=== PATIENT | male | born 1935 | race Caucasian/White ===

== ENCOUNTER → 2017-07-27 10:15 | Outpatient (CLI) | payer MEDICARE, OTHER, SELFPAY ==
[2017-07-27 12:44] LABS: AST(SGOT) 16 U/L (15-37); Alanine Aminotransfer ALT/SGPT 22 U/L (16-61); Albumin, Serum 3.6 g/dL (3.2-5.0); Alkaline Phosphatase 67 U/L (45-117); Bilirubin, Direct 0.21 mg/dL (0.00-0.30); Cholesterol 87 mg/dL (200); Globulin 3.6 g/dL (2.2-4.2); High Density Lipoprotein 62 mg/dL; Protein, Total 7.2 g/dL (6.4-8.2); Triglycerides 37 mg/dL; Very Low Density Lipoprotein 7 mg/dL (5-40)
== END ==
PROVIDERS: Family Provider Family Medicine; PCP Family Medicine; Visit Provider Physician Assistant Medical
DX: E78.5 Hyperlipidemia, unspecified (principal); Z79.899 Other long term (current) drug therapy
CPT/HCPCS: 36415; 80061; 80076

== ENCOUNTER → 2017-09-21 11:40 | Outpatient (CLI) | payer MEDICARE, OTHER, SELFPAY ==
[2017-09-21 14:54] LABS: Absolute Lymphocyte Count 0.92 X10^3/ul (0.83-4.51); Absolute Neutrophil Count 3.4 X10^3/uL (2.0-7.7); Basophil# 0.03 X10^3/uL; Basophil% 0.6 % (0-1); Eosinophil# 0.18 X10^3/uL; Eosinophils% 3.6 % (0-5); Hematocrit 42.8 % (40-54); Hemoglobin 13.7 g/dl (13.0-16.5); Lymphocyte # 0.92 X10^3/ul (4.0); Lymphocyte % 18.4 % (19-41); Mean Corpuscular Hgb 31.3 pg (27.0-32.0); Mean Corpuscular Volume 97.7 fL (80-94); Mean Platelet Vol. 11.1 fl (6.2-12.0); Monocyte# 0.45 X10^3/uL; Neutrophil # 3.43 X10^3/uL (2.7-7.7); Neutrophil % 68.4 % (47-70); Platelet Count 199 K/mm3 (150-450); RBC Distribution Width CV 12.9 % (11.6-14.6); RBC Distribution Width SD 46.5 fl (35.1-43.9); Red Blood Count 4.38 M/mm3 (4.6-6.2)
[2017-09-21 14:55] LABS: POSITIVE COUNT NO; POSITIVE DIFFERENTIAL NO; POSITIVE MORPHOLOGY NO
[2017-09-21 15:26] LABS: Vitamin D,25 Hydroxy 41.4 ng/mL (29.95-100.01)
[2017-09-21 15:27] LABS: CRP < 2.90 mg/L (0.0-3.0); PTHIN 49.7 pg/mL (18.4-80.1); Rheumatoid Factor < 10.0 IU/mL (<15); Uric Acid 5.1 mg/dL (3.5-7.2)
[2017-09-23 11:25] LABS: ANTINUCLEAR ANTIBODIES DIRECT Negative (Negative)
[2017-09-24 10:59] LABS: CCP IgG Antibodies 9 units (0-19)
== END ==
PROVIDERS: Family Provider Family Medicine; PCP Family Medicine; Visit Provider Family Medicine
DX: M06.4 Inflammatory polyarthropathy (principal); E55.9 Vitamin D deficiency, unspecified
CPT/HCPCS: 36415; 82306; 83970; 84443; 84550; 85025; 86038; 86140; 86200; 86431

== ENCOUNTER → 2017-11-20 11:35 | Outpatient (CLI) | payer MEDICARE, OTHER, SELFPAY ==
[2017-11-20 14:36] LABS: Hematocrit 44.5 % (40-54); Hemoglobin 14.3 g/dl (13.0-16.5); Mean Corp Hgb Conc 32.1 g/gl (32-36); Mean Corpuscular Hgb 31.6 pg (27.0-32.0); Mean Corpuscular Volume 98.5 fL (80-94); Mean Platelet Vol. 11.1 fl (6.2-12.0); Platelet Count 217 K/mm3 (150-450); RBC Distribution Width CV 13.2 % (11.6-14.6); RBC Distribution Width SD 46.9 fl (35.1-43.9); Red Blood Count 4.52 M/mm3 (4.6-6.2); Scan Indicated on CBC? Y/N NO; White Blood Count 6.1 K/mm3 (4.4-11.0)
[2017-11-20 14:37] LABS: ALB/GLOB Ratio 0.9 RATIO (0.9-2.4); AST(SGOT) 22 U/L (15-37); Alanine Aminotransfer ALT/SGPT 30 U/L (16-61); Albumin, Serum 3.6 g/dL (3.2-5.0); Alkaline Phosphatase 61 U/L (45-117); Anion Gap 8 (5-15); BUN 21 mg/dL (7-18); BUN/Creat Ratio 19.8 RATIO (10-20); Calcium,Total 9.4 mg/dL (8.5-10.1); Chloride 106 mmol/L (98-107); Creatinine, Serum 1.06 mg/dL (0.70-1.30); EST Glomerular Filtration Rate 71 mL/min (>60); Est Glom Filt Rate - Afr Amer 86 mL/min (>60); Globulin 3.8 g/dL (2.2-4.2); Glucose 84 mg/dL (74-106); PSA,Total- Diagnostic 0.38 ng/mL (0.0-4.0); Potassium 4.8 mmol/L (3.5-5.1); Protein, Total 7.4 g/dL (6.4-8.2); Sodium Level 142 mmol/L (136-145); Thyroid Stim Hormone (TSH) 2.22 uIU/mL (0.358-3.74)
[2017-11-20 15:17] LABS: Vitamin D,25 Hydroxy 30.3 ng/mL (29.95-100.01)
== END ==
PROVIDERS: Family Provider Family Medicine; PCP Family Medicine; Visit Provider Family Medicine
DX: Z00.00 Encounter for general adult medical examination without abnormal findings (principal); F32.89 Other specified depressive episodes; E55.9 Vitamin D deficiency, unspecified
CPT/HCPCS: 36415; 80053; 82306; 84153; 84403; 84443; 85027

== ENCOUNTER → 2018-01-15 10:58 | Outpatient (CLI) | payer MEDICARE, OTHER, SELFPAY ==
[2018-01-15 12:18] LABS: Absolute Lymphocyte Count 1.05 X10^3/ul (0.83-4.51); Basophil# 0.02 X10^3/uL; Basophil% 0.4 % (0-1); Eosinophils% 3.5 % (0-5); Hematocrit 42.6 % (40-54); Hemoglobin 13.8 g/dl (13.0-16.5); Lymphocyte # 1.05 X10^3/ul (4.0); Lymphocyte % 18.4 % (19-41); Mean Corp Hgb Conc 32.4 g/gl (32-36); Mean Corpuscular Hgb 32.1 pg (27.0-32.0); Mean Corpuscular Volume 99.1 fL (80-94); Mean Platelet Vol. 11.1 fl (6.2-12.0); Monocyte# 0.42 X10^3/uL; Monocyte% 7.4 % (0-10); Neutrophil # 4.01 X10^3/uL (2.7-7.7); Neutrophil % 70.1 % (47-70); Platelet Count 204 K/mm3 (150-450); RBC Distribution Width SD 46.4 fl (35.1-43.9); White Blood Count 5.7 K/mm3 (4.4-11.0)
[2018-01-15 12:28] LABS: POSITIVE COUNT NO; POSITIVE DIFFERENTIAL NO; POSITIVE MORPHOLOGY NO
[2018-01-15 12:40] LABS: Vitamin B12 496 pg/mL (211-911)
[2018-01-15 13:15] LABS: Ferritin 98 ng/mL (26-388)
== END ==
PROVIDERS: Family Provider Family Medicine; PCP Family Medicine; Referring Provider Family Medicine; Visit Provider Family Medicine
DX: D64.9 Anemia, unspecified (principal)
CPT/HCPCS: 36415; 82607; 82728; 82746; 85025

== ENCOUNTER → 2018-08-04 | Outpatient (CLI) | payer MEDICARE, OTHER, SELFPAY ==
[2018-08-04 16:34] LABS: Absolute Lymphocyte Count 1.07 X10^3/ul (0.83-4.51); Absolute Neutrophil Count 3.7 X10^3/uL (2.0-7.7); Basophil# 0.02 X10^3/uL; Basophil% 0.4 % (0-1); Eosinophil# 0.25 X10^3/uL; Eosinophils% 4.4 % (0-5); Hematocrit 42.5 % (40-54); Hemoglobin 13.9 g/dl (13.0-16.5); Lymphocyte # 1.07 X10^3/ul (4.0); Lymphocyte % 18.9 % (19-41); Mean Corp Hgb Conc 32.7 g/gl (32-36); Mean Corpuscular Hgb 31.5 pg (27.0-32.0); Mean Corpuscular Volume 96.4 fL (80-94); Mean Platelet Vol. 10.7 fl (6.2-12.0); Monocyte% 10.6 % (0-10); Neutrophil # 3.72 X10^3/uL (2.7-7.7); Neutrophil % 65.5 % (47-70); POSITIVE COUNT NO; POSITIVE DIFFERENTIAL NO; POSITIVE MORPHOLOGY NO; Platelet Count 222 K/mm3 (150-450); RBC Distribution Width CV 13.2 % (11.6-14.6); RBC Distribution Width SD 45.3 fl (35.1-43.9); Red Blood Count 4.41 M/mm3 (4.6-6.2); White Blood Count 5.7 K/mm3 (4.4-11.0)
[2018-08-04 16:42] LABS: Erythrocyte Sedimentation Rate 6 mm/hr (0-20)
[2018-08-04 16:45] LABS: ALB/GLOB Ratio 1.1 RATIO (0.9-2.4); AST(SGOT) 16 U/L (15-37); Alanine Aminotransfer ALT/SGPT 22 U/L (16-61); Albumin, Serum 3.7 g/dL (3.2-5.0); Alkaline Phosphatase 71 U/L (45-117); Anion Gap 3 (5-15); BUN 21 mg/dL (7-18); BUN/Creat Ratio 21.3 RATIO (10-20); Calcium,Total 9.2 mg/dL (8.5-10.1); Chloride 108 mmol/L (98-107); Creatinine, Serum 0.98 mg/dL (0.70-1.30); EST Glomerular Filtration Rate 77 mL/min (>60); Est Glom Filt Rate - Afr Amer 93 mL/min (>60); Globulin 3.3 g/dL (2.2-4.2); Glucose 95 mg/dL (74-106); Potassium 5.1 mmol/L (3.5-5.1); Sodium Level 137 mmol/L (136-145); Thyroid Stim Hormone (TSH) 1.82 uIU/mL (0.358-3.74)
[2018-08-04 22:06] LABS: Vitamin B12 980 pg/mL (211-911)
== END | disposition home or self-care (01) ==
LOC: MFPLAB 14:32
PROVIDERS: Family Provider Family Medicine; PCP Family Medicine; Referring Provider Family Medicine; Visit Provider Family Medicine
DX: R53.83 Other fatigue (principal)
CPT/HCPCS: 36415; 80053; 82607; 82746; 84443; 85025; 85652

== ENCOUNTER → 2018-08-16 | Outpatient (CLI) | payer MEDICARE, OTHER, SELFPAY ==
--- NOTE | 2018-08-16 17:08 | CT_ITS ---
STUDY: CT BRAIN WITHOUT CONTRAST REASON FOR EXAM: Male, 83 years old. Unsteady gait RADIATION DOSAGE (If Supplied By Facility): DLP = ( 812.98 ) mGycm TECHNIQUE: Transaxial CT imaging of the brain was performed without administration of intravenous contrast material. Individualized dose optimization techniques were used for this CT. COMPARISON: None. FINDINGS: There is no acute bleed or infarct. Chronic ischemic and atrophic changes are present. The ventricles are normal in configuration. There is no hydrocephalus. The visualized paranasal sinuses are clear. The mastoid air cells are well aerated. There is no skull fracture. CT/Brain/Head without Contrast IMPRESSION: No acute intracranial abnormality. Chronic ischemic and atrophic changes. Electronically Signed: Santiago Koch, at 21:54 EDT Tel , Service support ,
== END | disposition home or self-care (01) ==
LOC: CT 17:05
PROVIDERS: Family Provider Family Medicine; PCP Family Medicine; Referring Provider Family Medicine; Visit Provider Family Medicine
DX: R26.81 Unsteadiness on feet (principal)
CPT/HCPCS: 70450

== ENCOUNTER 2018-09-09 12:31 | Outpatient (RCR) | payer MEDICARE, OTHER, SELFPAY ==
--- NOTE | 2018-09-09 13:26 | HP.PTEVAL_ITS ---
Patient's Visit Information SAVI OROZCO is a 83 year old M referred to Physical Therapy by Cooper Tucker MD with a diagnosis of Gait instability. Date of Evaluation: 09/09/18 Physical Therapist: Cooper Rosario, DPT, OCS, CSCS - Visit Plan Plan: Results reviewed with patient and sent to doctor. Educated on appropriate exercises for balance deficits per results and written down for patient to take to his current therapist. reviewed precautions. One time visit per doctor order. Pt wants to continue therapy closer to home and will show results to his therapist(exercises). - Subjective Findings: Dr. tucker wants balance test as he needs some physical therapy. Meds don't seem to work. Problem is he walks very slowly. stepping off a curb is tentative and hesitant. Feel one time this winter walking in [facility] and is now using a cane for long walks. (30+ minutes). has broken leg and needs to stay close to home. Feels hesitant to take longer walk due to fatigue and is tired. Not good on feet anymore adn trying to figure out why. No spinning. No neuropathy. No nerve problems. Sleep is good btu wakes up early. 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 Spends day going to office and taking care of .Does floor exercises at home for stretching. - Objective Ankle AROM and strength at ankles and hips and knees. Gastroc and HS mildly tight. Sensation LE WNL to gross light touch. reflexes 2/3 at patella and achilles. Walks and trasnfers I today but steps are short and slightly wide MARÍA ELENA, hesitant to shift weight. SOT: mild vestibular deficits. MCT: normal. LOS: R and L wieght shifts adn forward excursion deficits. Pt will have therapy at another clinic closer to home but came here just for balance test and have results sent to Dr. Tucker. - Anticipated Interventions Thank you for the opportunity to evaluate your patient. For Medicare and Medicare HMO plans, please review the plan of care and approve it. It will need to be FAXED BACK to us at [phone] for Medicare purposes. For Medicare only, by signing this I certify the plan of care. Please let me know if there are questions or concerns regarding this plan of care. Physician Zoya rodriguez: Date:
--- NOTE | 2018-09-09 13:27 | HP.PTCOM ---
PT Communication Note 09/09/[address] Cooper Hawk MD , Thank you for the referral of Yrn to [facility] for balance testing. The results are enclosed for your review. Please let me know fi there are questions. I have reviewed appropriate exercises based on these results with the patient to take to his current therapist for instruction. Sincerely, CHRIS GambleT, OCS, CSCS Contact Information
== END 2018-09-09 15:49 | disposition home or self-care (01) ==
LOC: PT 12:31
PROVIDERS: Family Provider Family Medicine; PCP Family Medicine; Referring Provider Family Medicine; Visit Provider Family Medicine
DX: R26.89 Other abnormalities of gait and mobility (principal)
CPT/HCPCS: 97162

== ENCOUNTER → 2018-10-05 | Outpatient (CLI) | payer MEDICARE, OTHER, SELFPAY ==
[2018-10-04 14:40] VITALS: BMI 26.5
[2018-10-05 11:58] LABS: AST(SGOT) 18 U/L (15-37); Alanine Aminotransfer ALT/SGPT 21 U/L (16-61); Albumin, Serum 3.6 g/dL (3.2-5.0); Alkaline Phosphatase 71 U/L (45-117); Bilirubin, Direct 0.19 mg/dL (0.00-0.30); Cholesterol 103 mg/dL (200); Globulin 3.6 g/dL (2.2-4.2); High Density Lipoprotein 73 mg/dL; Protein, Total 7.2 g/dL (6.4-8.2); Triglycerides 44 mg/dL; Very Low Density Lipoprotein 9 mg/dL (5-40)
== END | disposition home or self-care (01) ==
PROVIDERS: Family Provider Family Medicine; PCP Family Medicine; Referring Provider Internal Medicine Cardiovascular Disease; Visit Provider Internal Medicine Cardiovascular Disease
DX: I25.10 Atherosclerotic heart disease of native coronary artery without angina pectoris (principal)
CPT/HCPCS: 36415; 80061; 80076

== ENCOUNTER → 2019-03-28 13:15 | Outpatient (CLI) | payer MEDICARE, OTHER, SELFPAY ==
[2018-10-04 14:40] VITALS: BMI 26.5
--- NOTE | 2019-03-28 13:38 | MRI_ITS ---
STUDY: MRI BRAIN WITH AND WITHOUT CONTRAST REASON FOR EXAM: Male, 84 years old. ATAXIA, balance/walking issues TECHNIQUE: Standardized multiplanar fat and water weighted pulse sequences were obtained. Dotarem IV 16ml was administered for the contrast portion of the examination. COMPARISON: FINDINGS: There is moderate confluent periventricular and scattered subcortical white matter gliosis. There is no mass effect, midline shift, extra parenchymal fluid collections or herniation. There is mild global brain atrophy. There is moderate ventriculomegaly affecting all 4 ventricles. There are no intracranial hemorrhagic findings. Enhancement is normal. MRI/Brain W/WO Contrast IMPRESSION: 1. Moderate chronic white matter ischemic disease. 2. Moderate communicating hydrocephalus. Normal pressure hydrocephalus is one potential etiology. Specialty referral is advised. Electronically Signed: Helder Zhu, at 16:00 EST Tel , Service support ,
== END ==
PROVIDERS: Family Provider Family Medicine; PCP Family Medicine; Referring Provider Psychiatry & Neurology Neurology; Visit Provider Psychiatry & Neurology Neurology
DX: R27.0 Ataxia, unspecified (principal)
CPT/HCPCS: 70553; A9575

== ENCOUNTER 2020-04-20 12:55 | Outpatient (RCR) | payer MEDICARE, OTHER, SELFPAY ==
[2019-10-03 13:13] VITALS: BMI 25.8
== END 2020-04-20 23:59 ==
LOC: IMMUN 12:55
PROVIDERS: PCP Family Medicine; Visit Provider Family Medicine
DX: Z23 Encounter for immunization (principal)
CPT/HCPCS: 0011A; 0012A; 91301

== ENCOUNTER → 2020-07-27 12:34 | Outpatient (CLI) | payer MEDICARE, OTHER, SELFPAY ==
[2019-10-03 13:13] VITALS: BMI 25.8
--- NOTE | 2020-07-27 12:54 | RAD_ITS ---
STUDY: X-RAY CHEST REASON FOR EXAM: Male, 85 years old. ABNORMAL WEIGHT LOSS TECHNIQUE: PA and lateral views of the chest. COMPARISON: 02/23/2017 FINDINGS: The lungs are clear and expanded. There is no demonstrated pleural abnormality. Normal size heart. Normal mediastinum and carolyne. Normal visualized pulmonary arteries. Normal visualized aortic arch and descending thoracic aorta. Normal visualized thoracic spine. Normal visualized ribs, clavicles, and shoulders. There is no demonstrated abnormality of the visualized soft tissue structures of the upper abdomen. RAD/Chest PA and Lateral IMPRESSION: Normal x-ray examination of the chest. Electronically Signed: Yrn Westbrook MD at 12:37 EDT Tel , Service support ,
[2020-07-27 15:26] LABS: Absolute Lymphocyte Count 1.09 X10^3/uL (0.83-4.51); Absolute Neutrophil Count 3.6 X10^3/uL (2.0-7.7); Basophil# 0.04 X10^3/uL; Basophil% 0.7 % (0-1); Eosinophil# 0.22 X10^3/uL; Hematocrit 42.3 % (40-54); Hemoglobin 13.5 g/dL (13.0-16.5); Lymphocyte # 1.09 X10^3/ul (0.83-4.51); Lymphocyte % 19.9 % (19-41); Mean Corp Hgb Conc 31.9 g/dL (32-36); Mean Corpuscular Hgb 32.2 pg (27.0-32.0); Monocyte# 0.51 X10^3/uL; Monocyte% 9.3 % (0-10); NRBC Flagged by Analyzer 0 % (0-5); Neutrophil # 3.61 X10^3/uL (2.7-7.7); Neutrophil % 65.9 % (47-70); Platelet Count 219 K/mm3 (150-450); RBC Distribution Width CV 12.6 % (11.6-14.6); RBC Distribution Width SD 46.8 fl (35.1-43.9); Red Blood Count 4.19 M/mm3 (4.6-6.2); White Blood Count 5.5 K/mm3 (4.4-11.0)
[2020-07-27 16:02] LABS: AST(SGOT) 15 U/L (15-37); Alanine Aminotransfer ALT/SGPT 21 U/L (16-61); Albumin, Serum 3.6 g/dL (3.2-5.0); Alkaline Phosphatase 65 U/L (45-117); Anion Gap 3 (5-15); BUN 23 mg/dL (7-18); BUN/Creat Ratio 24.6 RATIO (10-20); CRP < 2.90 mg/L (0.0-3.0); Calcium,Total 9.3 mg/dL (8.5-10.1); Chloride 105 mmol/L (98-107); Creatinine, Serum 0.94 mg/dL (0.70-1.30); EST Glomerular Filtration Rate 81 mL/min (>60); Est Glom Filt Rate - Afr Amer 98 mL/min (>60); Globulin 3.6 g/dL (2.2-4.2); Glucose 77 mg/dL (74-106); Lipase 153 U/L (73-393); Potassium 4.9 mmol/L (3.5-5.1); Protein, Total 7.2 g/dL (6.4-8.2); Sodium Level 137 mmol/L (136-145); Thyroid Stim Hormone (TSH) 2.15 uIU/mL (0.358-3.74)
[2020-07-30 09:21] LABS: PTHIN 80.2 pg/mL (18.4-80.1)
[2020-07-30 10:46] LABS: ANTINUCLEAR ANTIBODIES DIRECT Negative (Negative)
[2020-07-30 16:08] LABS: PROEL- A/G Ratio 1.3 (0.7-1.7); PROEL- Albumin 3.8 g/dL (2.9-4.4); PROEL- Alpha-1 Globulin 0.2 g/dL (0.0-0.4); PROEL- Alpha-2 Globulin 0.7 g/dL (0.4-1.0); PROEL- Globulin, Total 2.9 g/dL (2.2-3.9); PROEL- TOTAL PROTEIN 6.7 g/dL (6.0-8.5)
== END ==
PROVIDERS: PCP Family Medicine; Referring Provider Family Medicine; Visit Provider Family Medicine
DX: R63.4 Abnormal weight loss (principal)
CPT/HCPCS: 71046; 80053; 83690; 83970; 84165; 84403; 84443; 85025; 86038; 86140

== ENCOUNTER → 2020-07-30 | Outpatient (CLI) | payer MEDICARE, OTHER, SELFPAY ==
[2019-10-03 13:13] VITALS: BMI 25.8
== END | disposition home or self-care (01) ==
PROVIDERS: PCP Family Medicine; Referring Provider Family Medicine; Visit Provider Family Medicine
DX: R63.4 Abnormal weight loss (principal)

== ENCOUNTER → 2020-08-08 15:13 | Outpatient (CLI) | payer MEDICARE, OTHER, SELFPAY ==
[2019-10-03 13:13] VITALS: BMI 25.8
[2020-08-08 17:44] LABS: GGTP 23 U/L (15-85); Lipase 114 U/L (73-393)
== END ==
PROVIDERS: PCP Family Medicine; Referring Provider Family Medicine; Visit Provider Family Medicine
DX: R63.4 Abnormal weight loss (principal)
CPT/HCPCS: 36415; 82977; 83690

== ENCOUNTER → 2020-11-01 13:01 | Outpatient (CLI) | payer MEDICARE, OTHER, SELFPAY ==
[2020-10-08 13:03] VITALS: BMI 25.4
--- NOTE | 2020-11-01 13:09 | ST.MBS ---
Modified Barium Swallow - Patient Information Study Date: 11/01/20 Study Time: 13:00 Direct Billable Minutes: 120 Total Minutes procedure & reportin Diagnosis: dysphagia, unspecified (R13.10) Referring Physician: Cooper Sky Reason for Referral: Patient has reported incidence of getting large pill stuck in his throat with subsequent sore throat and effortful swallowing. Medical History: The patient is a 85/m with past medical history including Abnormal electrocardiogram, Angina pectoris, Atherosclerotic heart disease of [place] coronary artery without angina pectoris, benign prostatic hyperplasia, essential hypertension, GERD, hyperlipidemia, Presence of stent in coronary artery, and Spigelian hernia. Current Diet Ordered: Regular textures/thin liquids Dentition: Natural Teeth Mental Status: WNL Respiratory Status: Oxygenating on Room Air - Study Findings Consistencies: Thin Liquid, Bayard Thick Liquid, Honey Thick Liquid, Pudding, Cookie, Barium Tablet - Penetration-Aspiration Scale Penetration-Aspiration Scale: OBJECTIVE ASSESSMENT OF SWALLOW FUNCTION (QUANTITATIVE ? PER TRIAL): PENETRATION / ASPIRATION SCALE (CONTRERAS): 1 = does not enter airway 2 = enters airway/above vocal folds/ejected 3 = enters airway/above vocal folds/not ejected 4 = enters airway/contacts vocal folds/ejected 5 = enters airway/contacts vocal folds/not ejected 6 = enters airway/below vocal folds/ejected 7 = enters airway/below vocal folds/not ejected despite effort 8 = enters airway/below vocal folds/no effort - Penetration-Aspiration Scale Score Thin Liquid via teaspoon Result: 1= does not enter airway Thin Liquid via teaspoon Trial 2 Result: 1= does not enter airway Thin Liquid via small single sip from cup Result: 1= does not enter airway Thin Liquid via large single sip from cup Result: 1= does not enter airway Thin Liquid via sequential sips from cup Result: 2= enter airway/above vocal folds/ejected Bayard Thick Liquid via large single sip from cup Result: 1= does not enter airway Honey Thick Liquid via large single sip from cup Result: 2= enter airway/above vocal folds/ejected - with post prandial penetration without ejection. Pudding via teaspoon Result: 1= does not enter airway - with esophageal scan (complete clearance) Cookie Result: 1= does not enter airway Thin Liquid via single sip from straw Result: 1= does not enter airway Thin Liquid via sequential sips from straw Result: 1= does not enter airway Barium Tablet Result: 1= does not enter airway - Oral Phase Labial Seal: No Labial Escape Tongue Control During Bolus Hold: Posterior escape of greater than half of bolus - see trial with thin liquid via small sip from cup Bolus Preparation/Mastication: Slow prolonged chewing/mashing with complete recollection Bolus Transport/Lingual Motion: Delayed initiation of tongue motion Oral Residue: Trace residue lining oral structures - Pharyngeal Phase Initiation of Pharyngeal Swallow: Bolus head in pyriforms Soft Palate Elevation: No bolus between soft palate and pharyngeal wall Laryngeal Elevation: Partial superior movement thyroid cart/partial apprx aryt-epig petiole Anterior Hyoid Excursion: Partial anterior movement Epiglottic Movement: Complete inversion Laryngeal Vestibule Closure at Height of Swallow: Incomplete; narrow column of air/contrast in laryngeal vestibule Pharyngeal Stripping Wave: Present - complete Pharyngoesophageal Segment Opening: Complete distension and complete duration; no obstruction of flow Tongue Base Retraction: Narrow column of contrast between tongue base & post. pharyngeal wall Pharyngeal Residue: Trace residue within or on pharyngeal structures - Esophageal Phase Esophageal Clearance: Complete clearance - Diagnosis/Impression Diagnosis: mild oropharyngeal dysphagia (R13.12) Impression: Oral phase primarily marked by slowed mastication of solid Niharika Doone cookie with trace oral residue remaining. Patient found to have decreased anterior to posterior transfer of bolus due to delayed tongue initiation. With barium tablet taken with thin liquid patient had difficulty initiating swallow with repetitive tongue movement and head tilting back to initiate swallow. Pharyngeal phase primarily marked by decreased laryngeal elevation and hyoid excursion resulting in trace pharyngeal residue. Pt had penetration of thin liquid when taking sequential sips and post prandial penetration of honey thick liquid due to residue in the vallecula. No aspiration found at this date and time. Esophageal phase unremarkable. - Recommendations Diet: Regular Textures, Thin Liquids Comment: Given difficulty initiating swallow with barium tablet taken with thin liquids, pt encouraged to take pills with pudding or yogurt vs. thin liquids at home. Compensatory Strategies: Small Bites, Small Sips, Alternate bites/solids and sips/liquids, Sitting upright, Remain sitting upright for 30 minutes after PO intake - GERD precaution Recommend Repeat Modified Barium Swallow: No Need for Skilled Speech Therapy Services: No Education Completed: 1. Described result of evaluation., 2. Pt understands evaluation & agrees with goals and treatment plan. - Status Active ST Patient: Active - Contact Information [facility] Speech Therapy:: Violet Aldana MA, CCC-REGULATORY INTERN [place] [phone] [email or web address]
== END ==
PROVIDERS: PCP Family Medicine; Referring Provider Otolaryngology; Visit Provider Otolaryngology
DX: R13.10 Dysphagia, unspecified (principal)
CPT/HCPCS: 74230; 92611

== ENCOUNTER → 2020-11-16 14:02 | Outpatient (CLI) | payer MEDICARE, OTHER, SELFPAY ==
[2020-10-08 13:03] VITALS: BMI 25.4
--- NOTE | 2020-11-16 14:10 | CT_ITS ---
STUDY: CT LUMBAR SPINE WITHOUT CONTRAST REASON FOR EXAM: Male, 85 years old. LEG WEAKNESS/BILATERAL RADIATION DOSAGE (If Supplied By Facility): CTDIvol = ( 32.25 ) mGy, DLP = ( 977.33 ) mGycm TECHNIQUE: The patient was scanned in a multi detector CT scanner. High resolution transaxial imaging was performed. Images were obtained from L1 to S1 vertebral level. Sagittal and coronal images were reconstructed. Individualized dose optimization techniques were used for this CT. COMPARISON: None FINDINGS: Normal lumbar lordosis. There is no substantial scoliosis. Almost complete collapse of the L1 vertebrae. Anterior spondylosis. Prior vertebral plasty along the left anterior aspect of the vertebrae. L1-2: Moderate degree of disc space narrowing. Spondylosis. Facet joint osteoarthritis. Marked degree of bilateral neural foraminal stenosis. L2-3: Marked degree of disc space narrowing. Spondylosis. Facet joint osteoarthritis and hypertrophy. Marked degree of bilateral neural foraminal stenosis. L3-4: Moderate degree of disc space narrowing. Spondylosis. Facet joint osteoarthritis and hypertrophy. Hypertrophy of the ligamenta flava. Moderate degree of bilateral neural foraminal stenosis. Moderate degree of central canal stenosis. L4-5: Marked degree of disc space narrowing. Spondylosis. Facet joint osteoarthritis and hypertrophy. Moderate degree of bilateral neural foraminal stenosis and central canal stenosis. L5-S1: Moderate degree of disc space narrowing at this degeneration. Spondylosis. Facet joint osteoarthritis. Normal visualized paraspinous soft tissue structures. CT/Spine Lumbar without Contrast IMPRESSION: Multilevel degenerative changes, as described above. This is worse at the L2-L3, L3-L4 and L4-L5 levels. Almost complete collapse of the L1 vertebrae with prior vertebroplasty. Electronically Signed: Rodolfo Peck MD at 15:18 EDT , Service support ,
== END ==
PROVIDERS: PCP Family Medicine; Visit Provider Family Medicine
DX: R29.898 Other symptoms and signs involving the musculoskeletal system (principal)
CPT/HCPCS: 72131

== ENCOUNTER → 2021-01-28 11:38 | Outpatient (CLI) | payer MEDICARE, OTHER, SELFPAY ==
[2020-10-08 13:03] VITALS: BMI 25.4
--- NOTE | 2021-01-28 13:40 | NEURO_ITS ---
NCS and/or EMG Patient Report Ordering Doctor: Cooper Hawk DATE OF SERVICE: 01/28/21 Indication: Gait instability. No significant muscle weakness or sensory loss. Evaluate for a neuromuscular etiology. Findings: Nerve conduction studies were performed in the right and left lower extremities. The right peroneal motor study recording the extensor digitorum brevis showed a borderline amplitude, borderline distal latency and mildly slowed conduction velocity. No conduction block or focal slowing was present across the fibular neck. The right tibial motor study recording the abductor hallucis brevis showed a reduced amplitude, normal distal latency and borderline conduction velocity. Right sural sensory response was absent. Right superficial peroneal sensory response was absent. The left peroneal motor study recording the extensor digitorum brevis showed a slightly reduced amplitude, borderline distal latency and slightly slowed conduction velocity. No conduction block or focal slowing was present across the fibular neck. The left tibial motor study recording the abductor hallucis brevis showed a reduced amplitude, normal distal latency and borderline conduction velocity. Left sural sensory response was absent. Left superficial peroneal sensory response was absent. Needle EMG of both lower extremities was performed. The lumbar paraspinal muscles were not examined due to the patient's prior history of low back surgery. No denervation was present in any muscle. Similar motor unit changes were seen on both sides. The extensor hallucis longus and tensor fascia angie muscles demonstrated motor units which were large amplitude and long duration. All motor unit morphology, activation and recruitment patterns were normal. Impression: This is an abnormal study. There is electrophysiologic evidence suggestive of chronic, bilateral, L5 radiculopathies. There is no active denervation to sugge st ongoing motor axon loss. This finding should be interpreted with caution as it would not be expected to produce the patient's current symptomatology. A generalized peripheral polyneuropathy cannot be excluded by this study. The sensory responses are all absent, but this is not an uncommon findings for an octogenarian. Likewise the motor responses were mildly slowed, but this is comparison to normative data from 60-year-old men. Clinical correlation is recommended. Harpreet Goff D.O. Multi Select Codes Neurology Neurology Interp Codes: 34610-75 Musc test done w/n test comp (interp) (Qty:2) and 85164-83 Nrv cndj test 7-8 studies (interp)
== END ==
PROVIDERS: PCP Family Medicine; Referring Provider Family Medicine; Visit Provider Family Medicine
DX: R29.898 Other symptoms and signs involving the musculoskeletal system (principal)
CPT/HCPCS: 95886; 95910

== ENCOUNTER → 2021-03-15 12:42 | Outpatient (CLI) | payer MEDICARE, OTHER, SELFPAY ==
--- NOTE | 2021-03-15 12:43 | US_ITS ---
STUDY: RENAL ULTRASOUND - COMPLETE REASON FOR EXAM: Male, 86 years old. Cyst seen on MRI -- MRI DONE ELSEWHERE TECHNIQUE: Ultrasound evaluation of the kidneys was performed with real-time and static marti-scale imaging. COMPARISON: None. FINDINGS: RIGHT KIDNEY: Normal location of the right kidney, which is normal in size. The right kidney measures 11.4 cm x 5.5 cm x 6.3 cm. There is a normal cortex of the right kidney. The renal cortex measures 1.6 cm. There is a septated cyst measuring 1.3 cm x 1.6 x 1.8 cm. There is also evidence of small parapelvic cysts. There are no right renal calculi. There is mild hydronephrosis of the right kidney. DISTAL RIGHT URETER: There is non-visualization of the distal right ureter. There is no demonstrated right ureterovesical junction calculus. There is a visualized right ureteral jet. LEFT KIDNEY: Normal location of the left kidney, which is normal in size. The left kidney measures 11.3 cm x 5.87 x 5.1 cm. There is a normal cortex of the left kidney. The renal cortex measures 1.3 cm. There is a 1.3 cm x 1.4 cm x 1.2 cm left renal cyst. There are no left renal calculi. There is mild hydronephrosis of the left kidney. DISTAL LEFT URETER: There is non-visualization of the distal left ureter. There is no demonstrated left ureterovesical junction calculus. There is a visualized left ureteral jet. BLADDER: The distended urinary bladder has a volume of 31 ml. There is a normal wall thickness of the distended urinary bladder. There is no demonstrated mass within the urinary bladder. There are no demonstrated bladder calculi. US/Kidney and Bladder IMPRESSION: Mild degree of bilateral hydronephrosis. Small bilateral renal cysts. Electronically Signed: Rodolfo Peck MD at 15:25 EST , Service support ,
== END ==
PROVIDERS: PCP Family Medicine; Referring Provider Family Medicine; Visit Provider Family Medicine
DX: N28.1 Cyst of kidney, acquired (principal)
CPT/HCPCS: 76770

== ENCOUNTER 2021-11-14 14:24 | Outpatient (RCR) | payer MEDICARE, OTHER, SELFPAY ==
--- NOTE | 2021-11-26 17:15 | HP.OTEVAL ---
Patient's Visit Information SAVI OROZCO is a 86 year old M, referred to Occupational Therapy by Dr. Rosalio Finn MD, with a diagnosis of OA bilateral hands. Date of Evaluation: 11/14/21 Occupational Therapist: Yamileth Cat, OTR/[place], CHT - Subjective This 86 year old male was seen for OT eval with dx of stiffness in bilateral hands and OA right hand- pt states his fingers are what bothers him- would like to straighten out his fingers. - ADLs Kitchen: Open jars, Open bottle caps Miscellaneous: Write - ROM ROM Comments: right IF ROM WNL left IF extension -20. right MF PIP -40/85 left 0/85. right RF PIP-25/85 left 0/85. pt demo full composite fisting noted OA deformities limiting pts ability to extend his fingers fully - Strength Strength Comments: not tested - Sensation Sensation Comments: denies - Quick DASH-Disab of Arm,Shoulder& Hand Quick DASH Score: 31.8175 - Goals Goal:: pt will demo a increase in bilateral hand ROM by 15* or greater to increase pts functionals use of his hands for ADLs and IADLS by dc. Goal:: pt will report a decrease in bilateral hand pain to less than 2/10 with use of ad. eq. for ADLs and IADLs by d.c - Rehabilitation General Assessment: pt demo with OA deformities and stiffness of bilateral hands- this limits pt from gaining full ROM and use of his hands with ADL s and IADLs. pt would benefit from skilled OT services 1-2x 4 weeks for pt to gain ROM and use of bilateral hands for ADLs and IADLs. Today therapist ed. pt on ROM, joint protection jasmin, and ad. eq. to gain increase functional ROM. Rehabilitation Potential: Fair - Anticipated Interventions A/AAROM/PROM, Modalities, Orthoses, Joint Protection/Energy Conservation, Education re assistive Equipment, Education re Diagnosis, Caregiver Training, Home Program - Visit Plan Frequency: 1-2x /Week Duration: 4 Weeks TEXT: Thank you for the opportunity to evaluate your patient. For Medicare and Medicare HMO plans, please review the plan of care and approve it. It will need to be FAXED BACK to us at [phone] for Medicare purposes. Please let me know if there are questions or concerns regarding this plan of care. Physician Signature: Date:
--- NOTE | 2022-03-11 13:30 | HP.OT.NRP ---
SAVI PENN OROZCO was seen in my office for initial evaluation on 11/14/21. The following Plan of Care was established for this patient: Initial Frequency: 1-2x /Week Initial Duration: 4 Weeks Anticipated Interventions: A/AAROM/PROM, Modalities, Orthoses, Joint Protection/Energy Conservation, Education re assistive Equipment, Education re Diagnosis, Caregiver Training, Home Program This patient was last seen in our office 11/14/21. Pertinent comments regarding their Occupational therapy will appear below: pt was seen for OT eval only- no further apts was schedule and due to time lapse in services pt d/c. At this point I will be discontinuing this patient from occupational therapy. I would be happy to see this patient again in the future if found appropriate by the physician. Thank you! Yamileth Cat, OTR/L, CHT
== END 2021-11-14 19:00 | disposition home or self-care (01) ==
LOC: OT 14:24
PROVIDERS: PCP Family Medicine; Referring Provider Specialist; Visit Provider Specialist
DX: M25.641 Stiffness of right hand, not elsewhere classified (principal); M25.642 Stiffness of left hand, not elsewhere classified; M19.041 Primary osteoarthritis, right hand
CPT/HCPCS: 97166

== ENCOUNTER → 2022-09-02 | Outpatient (CLI) | payer MEDICARE, OTHER, SELFPAY ==
[2022-09-02 17:49] LABS: Absolute Lymphocyte Count 1.25 X10^3/uL (0.83-4.51); Absolute Neutrophil Count 3.4 X10^3/uL (2.0-7.7); Basophil# 0.03 X10^3/uL; Basophil% 0.6 % (0-1); Eosinophils% 3.7 % (0-5); Hemoglobin 12.8 g/dL (13.0-16.5); Lymphocyte # 1.25 X10^3/ul (0.83-4.51); Lymphocyte % 23.4 % (19-41); Mean Corp Hgb Conc 31.2 g/dL (32-36); Mean Corpuscular Volume 102.5 fL (80-94); Mean Platelet Vol. 11.2 fl (6.2-12.0); Monocyte# 0.46 X10^3/uL; Monocyte% 8.6 % (0-10); NRBC Flagged by Analyzer 0 % (0-5); Neutrophil # 3.39 X10^3/uL (2.7-7.7); Neutrophil % 63.5 % (47-70); Platelet Count 227 K/mm3 (150-450); RBC Distribution Width CV 12.8 % (11.6-14.6); RBC Distribution Width SD 48.7 fl (35.1-43.9); White Blood Count 5.3 K/mm3 (4.4-11.0)
[2022-09-02 19:05] LABS: AST(SGOT) 17 U/L (15-37); Alanine Aminotransfer ALT/SGPT 18 U/L (16-61); Albumin, Serum 3.5 g/dL (3.2-5.0); Alkaline Phosphatase 63 U/L (45-117); Anion Gap 4 (5-15); BUN 31 mg/dL (7-18); BUN/Creat Ratio 34.3 RATIO (10-20); Calcium,Total 9.3 mg/dL (8.5-10.1); Chloride 109 mmol/L (98-107); EST Glomerular Filtration Rate 84 mL/min (>60); Est Glom Filt Rate - Afr Amer 102 mL/min (>60); Ferritin 109 ng/mL (26-388); Globulin 3.6 g/dL (2.2-4.2); Glucose 90 mg/dL (74-106); Potassium 5.3 mmol/L (3.5-5.1); Protein, Total 7.1 g/dL (6.4-8.2); Sodium Level 139 mmol/L (136-145)
[2022-09-02 19:12] LABS: Vitamin B12 309 pg/mL (211-911)
== END | disposition home or self-care (01) ==
LOC: MFPLAB 16:12
PROVIDERS: PCP Family Medicine; Visit Provider Family Medicine
DX: R41.89 Other symptoms and signs involving cognitive functions and awareness (principal); D64.9 Anemia, unspecified
CPT/HCPCS: 36415; 80053; 82607; 82728; 82746; 85025

== ENCOUNTER → 2022-10-06 | Outpatient (CLI) | payer MEDICARE, OTHER, SELFPAY ==
--- NOTE | 2022-10-06 14:37 | ST.MBS ---
Modified Barium Swallow Patient Information Study Date: 10/06/22 Study Time: 13:00 Direct Billable Minutes: 180 Total Minutes procedure & reportin Diagnosis: Dysphagia R13.10, GERD K21.9 Referring Physician: Cooper Hawk Reason for Referral: Objectively assess swallow function, risk for aspiration and to determine recommendations for LRD and compensatory strategies to improve safety of swallow. Medical History: Patient is an 87yo M who was referred by Dr. Cooper Hawk d/t concerns for swallowing difficulty. Patient's daughter present for instrumental swallow study who reports patient has dx of vascular parkinsonism, therefore PCP concerned for aspiration w/ PO intake. Patient reports coughing w/ PO intake, states this occurs more with food than drink. Patient was persistently throat clearing prior to PO trials w/ SALES CONSULTANT RESIDENTIAL MANAGER. Patient does have known dx of GERD which he manages with a daily medication taken in the morning. Denies any recent pneumonia. Current Diet Ordered: Regular Textures / Thin Liquids Dentition: WNL Mental Status: WNL Respiratory Status: Oxygenating on Room Air Penetration-Aspiration Scale Penetration-Aspiration Scale: OBJECTIVE ASSESSMENT OF SWALLOW FUNCTION (QUANTITATIVE ? PER TRIAL): PENETRATION / ASPIRATION SCALE (CONTRERAS): 1 = does not enter airway 2 = enters airway/above vocal folds/ejected 3 = enters airway/above vocal folds/not ejected 4 = enters airway/contacts vocal folds/ejected 5 = enters airway/contacts vocal folds/not ejected 6 = enters airway/below vocal folds/ejected 7 = enters airway/below vocal folds/not ejected despite effort 8 = enters airway/below vocal folds/no effort VIDEOFLOROSCOPIC SCALE SCORE (CONTRERAS): Grade I = aspiration of material that has penetrated into the laryngeal vestibule, intact cough reflex Grade II = aspiration < 10 % of the bolus, intact cough reflex Grade III = aspiration of < 10 % of the bolus, reduced cough reflex or aspiration of > 10 % of the bolus, intact cough reflex Grade IV = aspiration of > 10 % of the bolus, reduced cough reflex Penetration-Aspiration Scale Score Thin Liquid via teaspoon: Result: 1= does not enter airway Thin Liquid via cup: Result: 1= does not enter airway Thin Liquid via cup Trial 2: Result: 1= does not enter airway Thin Liquid via sequential sips from cup: Result: 1= does not enter airway Thin Liquid via sequential sips via straw: Result: 6= enters airway/below vocal folds/ejected [place] Thick Liquid via cup: Result: 1= does not enter airway Honey Thick Liquid via cup: Result: 1= does not enter airway Pudding: Result: 1= does not enter airway Cookie: Result: 1= does not enter airway Thin Liquid via cup Trial 3: Result: 1= does not enter airway Honey Thick Liquid via cup Trial 2: Result: 1= does not enter airway Oral Phase Labial Seal: No Labial Escape Tongue Control During Bolus Hold: Posterior escape of greater than half of bolus Bolus Preparation/Mastication: Slow prolonged chewing/mashing with complete recollection Bolus Transport/Lingual Motion: Repetitive/disorganized tongue motion Pharyngeal Phase Initiation of Pharyngeal Swallow: Bolus head in pyriforms Soft Palate Elevation: No bolus between soft palate and pharyngeal wall Laryngeal Elevation: Partial superior movement thyroid cart/partial apprx aryt-epig petiole Anterior Hyoid Excursion: Complete anterior movement Epiglottic Movement: Partial inversion Laryngeal Vestibule Closure at Height of Swallow: Incomplete; narrow column of air/contrast in laryngeal vestibule Pharyngeal Stripping Wave: Present - diminished Pharyngoesophageal Segment Opening: Parital distension and partial duration; parital obstruction of flow Tongue Base Retraction: Wide column of contrast between tongue base & post. pharyngeal wall Pharyngeal Residue: Collection of residue within or on pharyngeal structures Esophageal Phase Esophageal Clearance: Esophageal retention w/ retrograde flow below pharyngoesophageal seg. Treatment Strategies Effects of treatment strategies attemped:: double swallow = effective in clearing pharyngeal residue liquid wash = effective in clearing pharyngeal residue Diagnosis/Impression Diagnosis: mild oropharyngeal dysphagia R13.12 Impression: Patient presents w/ mild oropharyngeal dysphagia. Oral phase primarily marked by... - poor bolus control w/ premature loss of >1/2 of the bolus to the pyriforms and laryngeal vestibule observed w/ several consistencies. Premature spillage to the laryngeal vestibule increases risk for pre prandial aspiration. - slow, but functional mastication of Niharika Doone cookie. - repetitive and disorganized tongue control w/ cookie, required extended time for AP transport. Pharyngeal phase primarily marked by... - delayed pharyngeal onset timing resulting in suboptimal bolus location upon swallow onset. - decreased airway closure attributed to reduced laryngeal elevation. - aspiration observed w/ consecutive sips of thin liquid via straw. However, w/ the presence of a strong reflexive cough the bolus was ejected. Suspect prandial aspiration during the second swallow d/t the residues remaining in the pyriforms after the first swallow. - poor pharyngeal motility attributed to reduced TB retraction and reduced posterior stripping wave resulting in pharyngeal retention in the vallecula and pyriforms. - pharyngeal residues increased w/ thicker viscosities that was able to be cleared w/ use of double swallow and liquid wash. - prominent cricopharyngeal bar located at the C-6 level noted Esophageal phase primarily marked by... - timely clearance of pudding - retrograde flow of pudding in the lower esophagus Recommendations Diet: Regular Textures and Thin Liquids Compensatory Strategies: Small Bites, Small Sips, No Straws, Slow Rate, Multiple Swallows, Alternate bites/solids and sips/liquids, Sitting upright and Remain sitting upright for 30 minutes after PO intake Recommend Repeat Modified Barium Swallow: TBD Need for Skilled Speech Therapy Services: Yes Comment: Will recommend the patient for outpatient dysphagia therapy to address deficits in oropharyngeal swallow function. Would consider the patient for oropharyngeal strengthening exercises to improve deficits identified above. The patient would benefit from thorough education regarding diet recommendations and recommended compensatory strategies. Education Completed: 1. Described result of evaluation., 4. Family/caregivers understand evaluation & agree w/ goals & tx plan. and 6. Family/caregivers demonstrate recommended strategies. Status Active ST Patient: Active Contact Information [facility] Speech Therapy:: Kathe Gillespie M.A. [facility]-SALES CONSULTANT RESIDENTIAL MANAGER Speech-Language Pathologist [facility] [address] [place] [address] [email or web address] [phone]
== END | disposition home or self-care (01) ==
LOC: RAD 13:07
PROVIDERS: PCP Family Medicine; Referring Provider Family Medicine; Visit Provider Family Medicine
DX: R13.10 Dysphagia, unspecified (principal); G21.4 Vascular parkinsonism
CPT/HCPCS: 74230; 92611

== ENCOUNTER → 2023-01-30 | Outpatient (CLI) | payer MEDICARE, OTHER, SELFPAY ==
--- NOTE | 2023-01-30 16:47 | MRI_ITS ---
STUDY: MRI BRAIN WITH AND WITHOUT CONTRAST REASON FOR EXAM: Male, 88 years old. Visual changes with vascular parkinsons TECHNIQUE: Standardized multiplanar fat and water weighted pulse sequences were obtained. IV 17ml clariscan was administered for the contrast portion of the examination. COMPARISON: MR brain March 28, 2019 FINDINGS: There is moderate cerebral atrophy with widening of the extra-axial spaces and ventricular dilatation. There are multiple white matter hyperintensities, distributed throughout the deep white matter tracts of the cerebral hemispheres, consistent with moderate chronic white matter ischemic changes. There is no evidence for recent intracranial ischemia or other cause of cytotoxic edema on diffusion weighted imaging (DWI). Normal bilateral basal ganglia. Normal thalami. There is no extra-axial fluid accumulation. Normal flow voids within the major intracranial circulation suggesting patency by spin echo criteria. Normal venous enhancement. There is no enhancing intra-axial or extra-axial abnormality. Normal sella turcica, pituitary gland, infundibular stalk, optic chiasm and hypothalamus. Normal tectal plate and pineal gland. Normal midbrain, guillaume and medulla. Normal cerebellum. Normal basal cisterns. Normal bilateral temporal bones. Normal bilateral internal auditory canals. No demonstrated orbital abnormality, within the constraints of a routine brain study. Normal visualized paranasal sinuses. Normal calvarium and skull base. Normal visualized soft tissue structures. Normal visualized upper cervical spine. MRI/Brain W/WO Contrast IMPRESSION: Involutional changes of the brain, as described above. Electronically Signed: Duy Hansen MD at 0:09 EDT ,
--- NOTE | 2023-01-30 16:47 | MRI_ITS ---
STUDY: MRA OF THE HEAD WITHOUT CONTRAST REASON FOR EXAM: Male, 88 years old. Visual changes with vascular parkinsons TECHNIQUE: 3-D [id number] (TOF) imaging was performed with MIPs. The study was performed unenhanced. COMPARISON: MR brain March 28, 2019. FINDINGS: Normal bilateral petrous carotid arteries. Normal right cavernous carotid artery with a normal supraclinoid bifurcation. Normal left cavernous carotid artery with a normal supraclinoid bifurcation. Normal right A1 segments of the anterior cerebral artery. Normal left A1 segments of the anterior cerebral artery. There is non-visualization of the anterior communicating artery (ACOM). Normal bilateral A2 segments of the anterior cerebral arteries. Normal right M1 and M2 segments of the middle cerebral arteries, with a normal M1 bifurcation. Normal left M1 and M2 segments of the middle cerebral arteries, with a normal M1 bifurcation. There is non-visualization of the right posterior communicating artery (PCOM). There is non-visualization of the left posterior communicating artery (PCOM). Normal bilateral vertebral arteries. Normal basilar artery with a normal basilar bifurcation. The visualized bilateral superior cerebellar (SCA) arteries are normal. Normal bilateral P1, P2 and visualized P3 segments of the posterior cerebral arteries. There is no demonstrated aneurysm of the [place]. There is no major vessel occlusion or hemodynamically significant stenosis. There is no demonstrated abnormality of the visualized brain. MRI/MRA Head ONLY without Contrast IMPRESSION: Normal MRA of the head Electronically Signed: Duy Hansen MD at 23:14 EDT ,
[2023-01-30 17:36] LABS: CREATININE FINGERSTICK 1.1 mg/dL (0.70-1.30); EGFR FINGERSTICK > 60.0000 mL/min (>60)
== END | disposition home or self-care (01) ==
LOC: MRI 16:41
PROVIDERS: PCP Family Medicine; Visit Provider Family Medicine
DX: G21.4 Vascular parkinsonism (principal)
CPT/HCPCS: 70544; 70553; A9575

== ENCOUNTER 2023-07-23 12:00 | Inpatient (IN) | payer MEDICARE, OTHER, SELFPAY ==
[2023-07-23 13:42] VITALS: BP 132/70; BP 134/85; BP 136/78; PULSE 70; PULSE 71
[2023-07-23 13:46] VITALS: BMI 24.0
[2023-07-23 13:47] VITALS: BP 134/85; PULSE 71; RESP 17; TEMP 36.8; O2SAT 97
--- NOTE | 2023-07-23 16:06 | PCM.HP.STD ---
[facility] - General General Date of Admission: 07/23/23 Date of Service: 07/23/23 Chief Complaint: Debility due to generalized weakness. HPI Narrative SAVI OROZCO, is a 88 YO M with a hx of vascular dementia with parkinsonism, HLD, coronary artery disease, left circumflex PTCA/stent, hypertension, presbycusis, BPH and GERD who has been declining over the past 1-2 months. He saw his PCP, Dr. Cooper Hawk and requested to discontinue all medications that did not improve his quality of life. Vitamin C, atorvastatin, magnesium, mirtazapine, omeprazole and oxybutynin were discontinued on 06/20/2023 per Savi's daughter Cheyenne. He seemed to decline faster after that. He lives by himself but, he has [place] come in and check on him twice a day. He has 3 children but, no one lives close. On 07/21/23 he felt very weak when walking back from the [place] and he lowered himself to the floor. He did not fall. He was able to get on his knees but, he was unable to get off the floor and tried for about an hour. He was found on the floor by one of the [place] and she was unable to get him up. With the aid of the neighbor he was able to get off the floor and he was taken to [facility] emergency room. CT brain showed no acute findings and lab was unremarkable. UA was negative for infection. Chest x-ray showed no acute findings. He was very weak in the legs in the ED and required assist of 2 people to stand. He was admitted to the hospital. He was evaluated by therapy in the hospital and because he was living by himself and MOD I with ADL's acute rehab was recommended at [facility]. He was transferred to the acute inpt rehab unit at [facility] on 07/23/23 for 3 hours of therapy daily to restore function/independence at or near his level prior to the recent event. He has seen Dr. Guzman in the past and was on carbidopa/levodopa for a time however his symptoms did not improve and it was discontinued. He has not seen Dr. Castro in a few years. On Thursday or Thursday he decided he was ready to and quit eating however, he got hungry and decided to eat. His in 2021 and he has been alone at home since then. He uses a WW to ambulate. All [facility] from [facility] was personally reviewed. The home medication list is the old list and has not been updated. His dtr tells me that he has not taken carbidopa/levodopa for a few years now. Currently he is taking as needed acetaminophen, as needed Tums, Proscar 5 mg daily, Flomax 0.4 mg daily and stool softeners. [facility] Medical History (Updated 07/24/23 @ 11:[address] Annmarie Ochoa, ) Angina pectoris BPH (benign prostatic hyperplasia) Depression Osteoarthritis Parkinsonism Spigelian hernia Vascular dementia Home Medications aspirin 81 mg tablet,delayed release 81 mg PO DAILY@0800 heart halth 09/07/15 [History Last Taken 03/11/17 81 mg] calcium carbonate 500 mg-vitamin D3 2.5 mcg (100 unit) chewable tablet 1 ea PO QHS dyspepsia 09/07/15 [History Last Taken Unknown] finasteride 5 mg tablet 5 mg PO DAILY prostate 09/07/15 [History Last Taken 09/07/15 5 mg] acetaminophen 500 mg tablet (Tylenol Extra Strength) 1,000 mg PO TID PRN pain 10/03/19 [History Last Taken Unknown] carbidopa 25 mg-levodopa 100 mg tablet 1 tab PO TID parkinson 10/03/19 [History Last Taken Unknown] nitroglycerin 0.4 mg sublingual tablet 0.4 mg sublingual Q5-15M PRN chest pain #90 tabs 10/03/19 [Rx Last Taken Unknown] polyethylene glycol 3350 17 gram/dose oral powder (Miralax) 17 g PO DAILY delbert 10/14/21 [History Last Taken Unknown] tamsulosin 0.4 mg capsule 0.4 mg PO DAILY urination 10/14/21 [History Last Taken Unknown] vit C 250 mg-vit E 200 unit-zinc ox 12.5 [id number] capsule (ICaps AREDS2) 1 cap PO BID vision 07/23/23 [History Last Taken Unknown] Allergy/AdvReac Type Severity Reaction Status Date / Time enalapril maleate Allergy THOUGHT I Verified 10/14/21 13:34 [From Vasotec] WAS HAVING A HEART ATTACK enalaprilat dihydrate Allergy Other Verified 10/14/21 13:34 [From Vasotec] Penicillins Allergy HIVES AND Verified 10/14/21 13:34 SWELLING tetanus and diphtheria Allergy Other Verified 10/14/21 13:34 toxoids [tetanus & diphtheria toxoids] loratadine AdvReac Other Verified 11/15/21 08:12 Family History unable to obtain Surgical History History of back surgery History of bilateral cataract extraction History of carpal tunnel surgery History of colon resection History of rotator cuff surgery Presence of coronary angioplasty implant and graft (~09/10/15) S/P trigger finger release Status post hernia repair Social History (Updated 07/24/23 @ 11:[address] 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 Smoking Status: Former smoker how long ago did patient quit smokin + years alcohol intake: current alcohol intake frequency: holidays/special occasions only substance use type: does not use caffeine: Yes Type: coffee Number of servings: 3 ROS Review of Systems ROS Unobtainable: Denies due to encephalopathy, due to endotracheal tube, due to mental condition or due to mental status Constitutional Constitutional: Reports weakness; Denies anorexia, change in weight, chills, fatigue, fever(s) or night sweats Eyes Eyes: Reports blurry vision left; Denies change in vision, discharge from eye(s), eye pain or loss of vision ENT HEENT: Reports abnormal hearing, hearing loss and other Details: Has a hearing aid. ; Denies dysphagia, headache(s), nasal congestion or sore throat Cardiovascular Cardiovascular: Reports other Details: Bilateral leg weakness. Denies weakness in his arms. ; Denies chest pain, dyspnea on exertion, edema, lightheadedness, orthopnea, palpitations, paroxysmal nocturnal dyspnea or syncope Respiratory/Chest Respiratory/Chest: Denies cough, dyspnea, shortness of breath at rest, shortness of breath with exertion or wheezing Gastrointestinal Gastrointestinal: Denies abdominal pain, constipation, diarrhea, dyspepsia, hematemesis, hematochezia, nausea or vomiting Genitourinary Genitourinary: Reports urinary frequency and urinary incontinence; Denies dysuria, hematuria, nocturia, urinary hesitancy or urinary urgency Musculoskeletal Musculoskeletal: Reports joint pain; Denies back pain, joint swelling or neck pain Integumentary Integumentary: Reports dry skin; Denies alopecia, change in hair, changing lesions, photosensitivity, pruritus or rash Neurologic Neurologic: Reports confusion, loss of vision, memory loss, weakness and other Details: Denies tremors. ; Denies disequilibrium, dizziness, focal weakness, headache(s), paresthesias, seizures, sensory deficit, tremor(s) or vertigo Psychiatric Psychiatric: Reports anxiety and depression; Denies homicidal ideation or suicidal ideation Endocrine Endocrinology: Denies change in body appearance, polydipsia or polyuria Hematologic/Lymphatic Hematologic/Lymphatic: Denies easy bleeding, easy bruising or lymphadenopathy Allergic/Immunologic Allergic/Immunologic: Denies rhinitis, eczemia or asthma Vital Signs Vital Signs Vital Signs: 07/23/23 13:47 07/23/23 13:42 Temperature 98.3 F Temperature Source Temporal Pulse Rate 71 Pulse Rate [Lying] 70 Pulse Rate [Sitting (for 1 minute prior to obtaining)] 71 Pulse Rate [Standing (for 1 minute prior to obtaining)] 70 Respiratory Rate 17 Blood Pressure 134/85 H Blood Pressure [Lying] 136/78 H Blood Pressure [Sitting (for 1 minute prior to obtaining)] 134/85 H Blood Pressure [Standing (for 1 minute prior to obtaining)] 132/70 H Blood Pressure Mean 101 Blood Pressure Mean [Lying] 97 Blood Pressure Mean [Sitting (for 1 minute prior to obtaining)] 101 Blood Pressure Mean [Standing (for 1 minute prior to obtaining)] 90 Blood Pressure Source Monitor Blood Pressure Position Semi-Fowlers Blood Pressure Location Right Arm Pulse Ox 97 Oxygen Delivery Method Room Air Weight Weight: 182 lb 5.156 oz Body Mass Index (BMI) 24.0 Physical Exam Const alert and no apparent distress Constitutional Narrative: Oriented to the month and year and to person. He can also tell me his age. General Appearance: cooperative and well kempt; Negative for ill appearing HEENT head/scalp atraumatic HEENT Narrative: He has hearing loss and has hearing aids. Pupils are equal, reactive to light and accommodation. No discharge from the eyes. No conjunctival injection or scleral icterus. No mattering of the eyelashes. Mucous membranes are dry. The tongue protrudes on the midline. Eyes PERRL, EOMs intact bilaterally, conjunctivae normal and no scleral icterus Neck supple and No nodes Chest Chest: symmetrical chest wall rise Resp normal respiratory effort, normal air movement and clear to auscultation bilaterally Resp Narrative: Not tachypneic or labored. Effort and Inspection: able to speak in complete sentences Cardio regular rate, regular rhythm, S1 normal heart sound, S2 normal heart sound, no murmurs, no rub and no gallops GI normal to inspection, nondistended, normoactive bowel sounds, soft to palpation and non-tender GI Narrative: No guarding with palpation. Continent of stool. no CVA tenderness Narrative: Occasional urinary incontinence. Bladder / Kidney Exam: No catheter in place Extremity no calf tenderness and no pedal edema Extremity Narrative: Osteoarthritic changes in his joints of the hands. Skin no wounds, no jaundice and no petechiae General Skin Exam: no breakdown and dry skin Rashes: no rashes Neuro CN's II-XII intact bilaterally and moves all extremities Neuro Narrative: No drift with the extremities. PERRTRU, EOMI. Oriented to person, month, age, knows he is in a hospital. Can tell me that he lives in [place]. No tremors and no rigidity. No significant bradykinesia. No masked facies. Has generalized weakness. No extinction. Has a hard time following some instructions.......needs voice and visual cues. No ataxia. Psych Psych Narrative: He is anxious and also depressed. Thinks about dying a lot. Stopped eating a few days ago because he wanted to but, he has changed his mind for now. He gets tearful when I talk about his , how long they were . Feels like it is OK to . He thinks his children are in a good place and he does not want to go on if he can not regain the strength in his legs. He is not suicidal. Denies hallucinations. No delusions. Short term memory is poor but, he is already remembering names of the staff he has met since arrival on rehab. Results Lab / Micro Data 07/24/23 05:34 07/24/23 05:34 Assessment & Plan Assessment/Plan (1) Physical debility: (2) Generalized muscle weakness: (3) Dehydration determined by examination: (4) Depression: (5) Vascular dementia: (6) Parkinsonism: (7) BPH (benign prostatic hyperplasia): QUALIFIERS: Prostatic enlargement morphology: unspecified morphology Lower urinary tract symptom presence: presence of symptoms unspecified Qualified Code(s): N40.0 - Enlarged prostate without lower urinary tract symptoms PLAN: Plan PLAN PT for gait stability OT for ADL's ST for evaluation Analgesics as needed Bowel protocol Fall precautions Assess for Anxiety/Depression GI prophylaxis -not necessary at this time. No history of peptic ulcer disease and no complaints of nausea/vomiting/epigastric pain. He does have a history of GERD/heartburn. He was on a PPI however this was discontinued the end of May. Will prescribe as needed Mylanta for heartburn. DVT prophylaxis with PATRICK hose and ambulation. Follow up with Dr. Cooper Hawk following DC from [facility] AM lab including CMP, CBC, Mag and Phos He stopped Remeron abruptly on June 19. this may have contributed to the more rapid decline the past 4-6 weeks. He is depressed and thinks about dying a lot. Restarting an antidepressant that treats both anxiety and depression would possibly improve his quality of life. Will discuss with him after he gets situated on rehab. Obtain record from Dr. Cooper Hawk and from Dr. Guzman. Discussed plan for tx with Missael and his dtr, Yas. Yas was able to provide a lot of hx. 60 minutes spent reviewing past diagnostic tests, lab results, vital sign trends, medical history, medications, all additional paperwork sent by the previous hospital, and ordering medications, examining the the patient and completing documentation. Charges/Coding Visit Charges Inpatient E&M: 06547 Init Hosp L2
[2023-07-23] MEDS: Carbidopa/Levodopa 25/100 Tablet PO (16:59)
[2023-07-23] MEDS: Finasteride 5 MG Tablet PO (19:54)
[2023-07-23] MEDS: Tamsulosin HCl 0.4 MG Capsule PO (19:54)
[2023-07-23 20:06] VITALS: BP 134/74; PULSE 73; RESP 16; TEMP 37; O2SAT 96
[2023-07-23] MEDS: Acetaminophen 500 MG Tablet 1000 MG PO (21:46)
[2023-07-24 05:51] LABS: Absolute Lymphocyte Count 1.29 X10^3/uL (0.83-4.51); Absolute Neutrophil Count 3.2 X10^3/uL (2.0-7.7); Basophil# 0.02 X10^3/uL; Basophil% 0.4 % (0-1); Eosinophil# 0.15 X10^3/uL; Eosinophils% 2.9 % (0-5); Hematocrit 44.2 % (40-54); Hemoglobin 14.4 g/dL (13.0-16.5); Lymphocyte # 1.29 X10^3/ul (0.83-4.51); Lymphocyte % 25.2 % (19-41); Mean Corp Hgb Conc 32.6 g/dL (32-36); Mean Corpuscular Hgb 31.4 pg (27.0-32.0); Mean Corpuscular Volume 96.3 fL (80-94); Mean Platelet Vol. 10.1 fl (6.2-12.0); Monocyte# 0.46 X10^3/uL; NRBC Flagged by Analyzer 0 % (0-5); Neutrophil # 3.18 X10^3/uL (2.7-7.7); Neutrophil % 62.1 % (47-70); Platelet Count 218 K/mm3 (150-450); RBC Distribution Width SD 46.2 fl (35.1-43.9); Red Blood Count 4.59 M/mm3 (4.6-6.2); White Blood Count 5.1 K/mm3 (4.4-11.0)
[2023-07-24] MEDS: Carbidopa/Levodopa 25/100 Tablet PO ×2 (06:27→11:03)
[2023-07-24 06:40] LABS: ALB/GLOB Ratio 0.8 RATIO (0.9-2.4); AST(SGOT) 17 U/L (15-37); Alanine Aminotransfer ALT/SGPT 17 U/L (16-61); Albumin, Serum 3.3 g/dL (3.2-5.0); Alkaline Phosphatase 67 U/L (45-117); Anion Gap 2 (5-15); BUN 20 mg/dL (7-18); BUN/Creat Ratio 20.6 RATIO (10-20); Calcium,Total 9.3 mg/dL (8.5-10.1); Chloride 110 mmol/L (98-107); Creatinine, Serum 0.97 mg/dL (0.70-1.30); EST Glomerular Filtration Rate 78 mL/min (>60); Est Glom Filt Rate - Afr Amer 94 mL/min (>60); Estimated Creatinine Clearance 58.35 ml/min; Glucose 96 mg/dL (74-106); Magnesium 2.3 mg/dL (1.6-2.6); Phosphorus 3.1 mg/dL (2.5-4.9); Potassium 4.4 mmol/L (3.5-5.1); Protein, Total 7.3 g/dL (6.4-8.2); Sodium Level 138 mmol/L (136-145)
--- NOTE | 2023-07-24 07:00 | NURSING ---
Patient x 2 assist for transfers while getting from bed to a standing position for urinal use. Patient restless throughout part of the night, confused, repetitive questions, anxiety noted. Patient eventually fell asleep around 1:00 am. Alert to self. Reoriented to time and place. No attempted self transfers. Patient forgetful with call light use and yells out for staff assist.
[2023-07-24 07:51] VITALS: BP 161/87; PULSE 66; RESP 16; TEMP 36.8; O2SAT 98
[2023-07-24 07:55] LABS: Vitamin D,25 Hydroxy 34.1 ng/mL
[2023-07-24] MEDS: Aspirin E.C. 81 MG Tablet PO (08:52)
--- NOTE | 2023-07-24 11:48 | REHABEVAL_ITS ---
Admission Information Primary Diagnosis:: Physical debility secondary to generalized weakness Status Changes from Prescreening?: No changes Identified Actual Problem List:: Cognitve Impr/Memory Loss, Depression, Bladder Incontinence, Mobility Impaired, Self Care Deficit, BP, Hypertension, Fluid Change-Dehydration and Alteration-Leisure Activ. Potential Problem List:: DVT, Bleeding, Infection, UTI, Aspiration, Falls, Skin Integrity and Depression Risk of Complications DVT: PATRICK Hose and - (Ambulation) Bleeding: Monitor Lab Values, Nursing to Teach Precautions for anti-coagulation therapy., Wound, if applicable, to be assessed every shift. and Stroke patients assessed for lethargy or change in status. Infection: Clinical Staff to Monitor for S/S of infection: and S/S of infection include fever, redness, warmth, etc. Urinary Tract Infection: Monitor for frequency, burning, discomfort, or incontinence. and Nursing will obtain urine sample for urinalysis and C&S when ordered. Aspiration: Clinical staff will monitor for coughing, drooling, congestion., Speech will evaluate swallowing and dsyphasia. and Nursing will monitor patient swallowing during meals. Falls: Patient will be evaluated for Fall Precautions and Patient will be placed on Fall Precautions as indicated per protocol. Skin Breakdown: Nursing will assess skin daily using assessment tool. and Nursing will place on Skin Breakdown Precautions as indicated. Pain: Clinical staff will assess patient's pain level per protocol., Medications will be given, if needed, and the pain level reassessed. and Other methods: Massage, distraction, decrease stimulus, etc. used PRN. Plan of Care Patient requires physician specializing in physical medicine and rehab oversight to provide close medical supervision of rehab issues including: Pain Management, Sleep Problems, Bowel and Bladder, Medical and co-morbidity Management, DVT prophylaxis, Rehabilitation Leadership and Coordination of treatment team Patient needs Physical Therapy: For a minimum of 1 hour and At least 5 out of 7 days Patient needs Physical Therapy to improve:: Mobility, Strengthening, Transfers, Stretching, ROM, Endurance, Stairs, Gait and Balance Patient needs Occupational Therapy: For a minimum of 1 hour and At least 5 out of 7 days Patient needs Occupational Therapy to improve ADL's incl.: Eating, Grooming, Bathing, Dressing, Toileting, Toilet transfers, Community Reintegration, Higher functioning activities, Household tasks, Adaptive Equipment, Splinting and Other activities as determined Patient requires speech therapy: For a minimum of 1 hour and At least 5 out of 7 days Patient requires speech therapy for: Swallowing, Cognition, Language Skills and Compensatory Strategies Patient requires 24/ Rehabilitation Nursing for: Pain Issues, Identifying and preventing risk factors, Monitoring and reporting current medical conditions, Assisting with ambulation, transfer, and all ADL's, Teaching patients about disease process and medications, Family teaching, Providing safe environment, Poncho wel and Bladder Issues, Skin integrity and Medication Management Patient needs Industrial/Organizational Psychologist/ Case Management for: Discharge Planning, Arranging Home Equipment or Services and Family Interventions Patient needs Dietary and Nutrition Services for: Adequate Nutrition, Nutritional Supplements and Nutritional Education Goals Goals Patient will remain: free from falls Patient will perform eating at: MOD I level of assist. Patient will perform bed mobility at: MOD I level of assist. Patient will complete transfers from bed to chair at: MOD I level of assist. Patient will ambulate: - (50 feet with a front wheel walker at standby assist) Patient will complete upper body dressing at: - (Supervision) Patient will complete lower body dressing at: - (Supervision with adaptive equipment as needed for increased independence with self-care.) Patient will complete toilet transfer at: - (Supervision) Patient will complete toileting at: - (Supervision) Patient will perform bathing at: MOD I level of assist. (Upper body bathing has set up and lower body bathing at supervision) Patient will complete grooming at: - (Set up) Patient will achieve: - (2 steps with a handrail for safe navigation of the home.) Patient will have pain level of: of 3 or less Patient's skin will: remain intact Patient will receive: adequate nutrition. Discharge Planning Pt Prognosis for Sig. Practical Improv. w/in Reasonable Time: Fair Estimated Length of stay (days): 21 Anticipated D/C Destination: TBD Was Preadmission Assessment Accurate?: Yes
[2023-07-24] MEDS: Tamsulosin HCl 0.4 MG Capsule PO (21:03)
[2023-07-24] MEDS: Finasteride 5 MG Tablet PO (21:03)
[2023-07-24] MEDS: Senna/Docusate Sodium 1 Tablet 2 TABLET PO (21:03)
[2023-07-24 22:00] VITALS: BP 106/63; PULSE 79; RESP 17; TEMP 37.3; O2SAT 95
[2023-07-25 07:10] VITALS: O2SAT 94
[2023-07-25 07:30] VITALS: BP 153/85; PULSE 67; RESP 16; TEMP 36.9; O2SAT 97
--- NOTE | 2023-07-25 07:36 | NURSING ---
Patient slept better this past night than the night before but still restless for part of the night and forgetful with call light use. Able to follow commands when given and remains alert to self. Reoriented to time and place.
[2023-07-25] MEDS: Aspirin E.C. 81 MG Tablet PO (08:11)
[2023-07-25] MEDS: Senna/Docusate Sodium 1 Tablet 2 TABLET PO (08:11)
[2023-07-25 19:15] VITALS: BP 124/79; PULSE 82; RESP 19; TEMP 37.3; O2SAT 94
[2023-07-25] MEDS: Finasteride 5 MG Tablet PO (20:58)
[2023-07-25] MEDS: Tamsulosin HCl 0.4 MG Capsule PO (20:58)
[2023-07-26] MEDS: Aspirin E.C. 81 MG Tablet PO (08:30)
[2023-07-26 10:00] VITALS: BP 137/82; PULSE 74; RESP 18; TEMP 37.2; O2SAT 98
[2023-07-26 20:13] VITALS: BP 114/74; PULSE 85; RESP 18; TEMP 37.2; O2SAT 97
[2023-07-26] MEDS: Tamsulosin HCl 0.4 MG Capsule PO (20:54)
[2023-07-26] MEDS: Senna/Docusate Sodium 1 Tablet 2 TABLET PO (20:54)
[2023-07-26] MEDS: Finasteride 5 MG Tablet PO (20:54)
[2023-07-26] MEDS: Nystatin Powder 15gm Bottle 1 APPLIC TOPICAL (21:27)
[2023-07-27 07:21] VITALS: BP 146/72; PULSE 68; RESP 15; TEMP 36.4; O2SAT 97
[2023-07-27] MEDS: Senna/Docusate Sodium 1 Tablet 2 TABLET PO ×2 (07:40→20:38)
[2023-07-27] MEDS: Nystatin Powder 15gm Bottle 1 APPLIC TOPICAL ×2 (07:41→20:38)
[2023-07-27] MEDS: Aspirin E.C. 81 MG Tablet PO (07:41)
--- NOTE | 2023-07-27 09:32 | PCM.PROGNOTE ---
Subjective Subjective Missael was seen on team rounds today. His son Yrn participated by phone. Yrn seems to be in denial about the extent of the cognitive dysfunction and his ability to care for himself. His other son Gloria called back and spoke with the charge nurse. Missael called Gloria when he was unable to use his call light to summon the nurse for assistance. gloria stated that he and his siblings have discussed his living situation and agreed that he can not be left alone. Afebrile VSS-blood pressure over the past 48 hours has ranged from 114/74 to 153/85. Tends to be highest in the early a.m. approximately 730. Lower at at bedtime. Heart rate is within normal limits. He is not on any antihypertensives. Maintaining appropriate oxygen saturation on RA Oral intake - FOOD good FLUIDS good Having regular bowel movements. Discussed with nursing - Nursing comments that he is not sleeping well and sometimes does not fall asleep until after MN. Forgetful. Not using the call rider when he needs help. Reviewed the THERAPY notes - Speech therapy recommended 20/10 supervision. Scored only 28 of 50 on the BCAT. Medication list reviewed. Missael has no complaints to me today. He is very [place] despite the hearing aids. He does not appear to be in any distress. Not coughing and no restlessness during the daylight hours. Objective Data Objective Data Vital Signs: Vital Signs Temp Pulse Resp BP Pulse Ox O2 Del Method 97.6 F L 68 15 146/72 H 97 Room Air 07/27/23 07:21 07/27/23 07:21 07/27/23 07:21 07/27/23 07:21 07/27/23 07:21 07/27/23 07:21 Oxygen Delivery Method Room Air Weight: 182 lb 5.156 oz Body Mass Index (BMI) 24.0 Intake & Output: Intake and Output for Last 24 Hours 07/25/23 07/26/23 07/27/23 23:59 23:59 23:59 Intake Total 2320 / 2320 1340 / 1340 480 / 480 Output Total 900 / 900 1575 / 1575 1250 / 1250 Balance 1420 / 1420 -235 / -235 -770 / -770 Lab / Micro Data 07/24/23 05:34 07/24/23 05:34 Physical Exam Const alert and no apparent distress Constitutional Narrative: He is adamant that he is doing better since his meds were discontinued and he is only taking 3 medications.......FLomax and Proscar are 2 of the meds he takes. He does not realize how much and how rapidly he has declined recently. He had to lower himself to the floor because he did not want to fall because he could not walk from the BR to his bedroom due to weakness. General Appearance: cooperative Resp normal respiratory effort, normal air movement and clear to auscultation bilaterally Resp Narrative: Not tachypneic or labored. Effort and Inspection: able to speak in complete sentences Cardio regular rate, regular rhythm, no murmurs, no rub and no gallops GI normal to inspection, nondistended, normoactive bowel sounds, soft to palpation and non-tender GI Narrative: No guarding with palpation. Continent of stool. 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 Skin no wounds, no jaundice and no petechiae General Skin Exam: no breakdown and dry skin Rashes: no rashes Neuro Neuro Narrative: Very fearful of falling when he is ambulating. Crouched posture and head down. Abandons the WW early when trying to sit down from standing. Needs voice cues to take longer steps. Can not retain information/instructions due to very poor short term memory. Shuffling gait. Very hard of hearing which impairs ability to understand instruction. Cannot understand how to do [id number] and [id number] even with visual and verbal cues. 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 Continue therapy 2. Check an EKG. If he has no QT interval prolongation will likely start Seroquel at at bedtime PRN insomnia/restlessness if not asleep by 11 PM. The EKG showed a first degree AV block but, QT was WNL. Will start Seroquel 25 mg at !!PM PRN insomnia. 3. Gloria believes he should be on a antidepressant because it will improve quality of life. He previously was on Remeron. Will restart and give at 9 PM nightly....hopefully it will help him to sleep better. 4. will give lists of local ECF's and Home agencies if they choose to hire someone to stay with him 20/10. Charges/Coding Visit Charges Inpatient E&M: 81804 Subs Hosp L2
--- NOTE | 2023-07-27 09:38 | EKG12_ITS ---
Test Reason : HYPERTENSION Blood Pressure : / mmHG Vent. Rate : 083 BPM Atrial Rate : 083 BPM P-R Int : 282 ms QRS Dur : 106 ms QT Int : 378 ms P-R-T Axes : 022 -06 041 degrees QTc Int : 444 ms Sinus rhythm with 1st degree A-V block Otherwise normal ECG No previous ECGs available Confirmed by REX HICKS, SHELLY ([id number]), make up editor DAMIAN ALBRECHT ([id number]) on 07/30/2023 11:41:38 AM Referred By: Annmarie Ochoa Confirmed By:SHELLY GOODMAN MD
--- NOTE | 2023-07-27 15:56 | CASEMGMT ---
Social Work IDT met with patient at bedside and son, Yrn Santos via phone. Discussed patient progress with therapy(PT/OT/ST) and nursing. Patient is progressing with physical therapy and occupational therapy, but due to cognition there are concerns for patient ability to care for self or reside in home with limited in home supervision and care. Speech therapy discussed concerns for patient care. Per son, patient currently resides in home with [facility] support M-F 9a-1P and 4P-7P. On weekends, patient's children stay in the home for assistance and care. The patient has vascular dementia requiring assistance for decision making and care. Physician discussed 24hr care recommendations and care needs. Patient discontinued medications with PCP. Physician discussed concerns for depression due to patient decision to discontinue medications and denial to eat food first day on unit. Physician is recommending Remeron. Patient declined Remeron medications at this time. SW will continue to follow to assist with placement. Post IDT meeting JÚNIOR spoke with son via phone. Patient's son, Yrn requested for Physician and care team contact information. JÚNIOR e-mailed Yrn with Physician contact information and resources for rodent exterminator care. Yrn informed JÚNIOR that he will provide information to his siblings. In addition, JÚNIOR provided the patient's son, Yrn with an electronic assisted care list with geographic preference, medical needs, insurance network via careport guide. GAURAGN Olivares
[2023-07-27] MEDS: Tamsulosin HCl 0.4 MG Capsule PO (20:37)
[2023-07-27] MEDS: Finasteride 5 MG Tablet PO (20:37)
[2023-07-27] MEDS: Mirtazapine 15 MG Tablet PO (20:38)
[2023-07-27 20:45] VITALS: PULSE 95; RESP 15; O2SAT 97
[2023-07-27 20:47] VITALS: BP 150/87; PULSE 68; RESP 16; TEMP 35; O2SAT 97
[2023-07-27] MEDS: QUEtiapine 25 MG Tablet PO (23:06)
--- NOTE | 2023-07-27 23:09 | NURSING ---
PRN Seroquel given per order if pt is still awake at 2300.
[2023-07-28 07:07] VITALS: BP 160/80; PULSE 55; RESP 16; TEMP 36.4; O2SAT 96
[2023-07-28] MEDS: Senna/Docusate Sodium 1 Tablet 2 TABLET PO (07:57)
[2023-07-28] MEDS: Aspirin E.C. 81 MG Tablet PO (07:57)
[2023-07-28] MEDS: Nystatin Powder 15gm Bottle 1 APPLIC TOPICAL ×2 (07:58→20:20)
--- NOTE | 2023-07-28 08:57 | PCM.PROGNOTE ---
Subjective Subjective Afebrile VSS -blood pressures range from 114/74-160 this morning. Heart rate has ranged from 55-95 over the past 24 hours. Maintaining appropriate oxygen saturation on RA Oral intake - FOOD good FLUIDS good Discussed with nursing - He received 15 mg of Remeron at 9 PM and then got 25 mg of Seroquel at 11 PM for restlessness /insomnia and he slept fair after that. Having coughing with taking medications and drinking water. ST plans on a swallowing eval today. Reviewed the THERAPY notes Medication list reviewed. Missael has no complaints today. He denies CP, SOB, racing heart, N/V/abd pain, dysuria and calf pain. He also denies cephalgia and vertigo. He is cooperative with therapy and has a good sense of humor.....he is joking with the therapists and seems to enjoy this. He is eating well. Slept better after Seroquel last night. will continue this on a PRN basis. Objective Data Objective Data Vital Signs: Vital Signs Temp Pulse Resp BP Pulse Ox O2 Del Method 97.5 F L 55 L 16 160/80 H 96 Room Air 07/28/23 07:07 07/28/23 07:07 07/28/23 07:07 07/28/23 07:07 07/28/23 07:07 07/28/23 07:07 Oxygen Delivery Method Room Air Weight: 182 lb 5.156 oz Body Mass Index (BMI) 24.0 Intake & Output: Intake and Output for Last 24 Hours 07/26/23 07/27/23 07/28/23 23:59 23:59 23:59 Intake Total 1340 / 1340 1640 / 1640 710 / 710 Output Total 1575 / 1575 1955 / 1955 800 / 800 Balance -235 / -235 -315 / -315 -90 / -90 Lab / Micro Data 07/24/23 05:34 07/24/23 05:34 Physical Exam Const alert and no apparent distress General Appearance: cooperative Resp clear to auscultation bilaterally Resp Narrative: Not tachypneic or labored. Effort and Inspection: able to speak in complete sentences Cardio regular rate, regular rhythm, no murmurs, no rub and no gallops GI normal to inspection, nondistended, normoactive bowel sounds, soft to palpation and non-tender GI Narrative: No guarding with palpation. Continent of stool. Extremity no calf tenderness and no pedal edema Skin no wounds General Skin Exam: no breakdown Rashes: no rashes Assessment & Plan Assessment/Plan (1) Physical debility: (2) Generalized muscle weakness: (3) Dehydration determined by examination: (4) Depression: (5) Vascular dementia: QUALIFIERS: Dementia severity: severe Dementia behavioral or psychological symptom: unspecified whether behavioral, psychotic, or mood disturbance or anxiety Qualified Code(s): F01.C0 - Vascular dementia, severe, without behavioral disturbance, psychotic disturbance, mood disturbance, and anxiety (6) Parkinsonism: QUALIFIERS: 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 Continue therapy 2. Continue Remeron 15 mg at 9 PM nightly and Seroquel 25 mg at 11 PM if he is restless and not asleep by that time. 3. I left a VM asking his dtr to call me at her convenience to keep her updated on what her brothers have said and to Discuss the plan for DC. He is not safe at home by himself and will need 24/7 supervision if he is going to go home. I discussed the MBS with the ST. He does aspirate thin liquids at times. She is going to continue to recommend thin liquids and regular textures. At this stage in his life quality of life is of primary concern and not quantity. He has significant dementia and parkinsonism and this 2 entities are progressive. Will discuss with his dtr continued use of Remeron for quality of life. BP's are mildly elevated but, I see no need to treat at this time. I also do not see a need for ASA, Statins. He needs to continue with the Flomax and Proscar to prevent urine retention. May need to schedule a family meeting with the and myself so that we are all on the same page about DC plans. Charges/Coding Visit Charges Inpatient E&M: 09286 Subs Hosp L1
--- NOTE | 2023-07-28 10:17 | SP.MBSS_ITS ---
Modified Barium Swallow Patient Information Study Date: 07/28/23 Study Time: 09:00 Direct Billable Minutes: 180 Total Minutes procedure & reportin Diagnosis: Parkinsonism, Oropharyngeal Dysphagia Referring Physician: Annmarie Ochoa Reason for Referral: Objective assessment of swallow function under fluoroscopy was recommended by the inpatient rehab LOAN REVIEW ANALYST d/t patient endorsing increased difficulty swallowing, pharyngeal residue retention, and post prandial wet vocal quality/cough present w/ PO intake at bedside. Pt had a prior MBSS at [facility] on 10/06/22 which revealed mild oropharyngeal dysphagia w/ aspiration of thin liquid via straw (which ejected w/ spontaneous cough) - diet recommended: Regular Textures/Thin Liquids w/ small bites, small sips, no straws, slow rate, multiple swallows, alternate bites/solids and sips/liquids, sitting upright and remain upright for 30 minutes after PO intake. Continued dysphagia intervention was recommended and was completed. Patient's daughter reports that he had some improvement in swallow function w/ dysphagia therapy, but once discharged from , was unable to complete the swallowing exercises independently and discontinued doing them. Medical History: Angina pectoris, BPH (benign prostatic hyperplasia), Depression, Osteoarthritis, Parkinsonism, Spigelian hernia, Vascular dementia Current Diet Ordered: Regular Textures/Thin Liquids Dentition: Natural Teeth Mental Status: Impaired (impaired memory, CIRCLE) Respiratory Status: Oxygenating on Room Air Penetration-Aspiration Scale Penetration-Aspiration Scale: OBJECTIVE ASSESSMENT OF SWALLOW FUNCTION (QUANTITATIVE ? PER TRIAL): PENETRATION / ASPIRATION SCALE (CONTRERAS): 1 = does not enter airway 2 = enters airway/above vocal folds/ejected 3 = enters airway/above vocal folds/not ejected 4 = enters airway/contacts vocal folds/ejected 5 = enters airway/contacts vocal folds/not ejected 6 = enters airway/below vocal folds/ejected 7 = enters airway/below vocal folds/not ejected despite effort 8 = enters airway/below vocal folds/no effort VIDEOFLOROSCOPIC SCALE SCORE (CONTRERAS): Grade I = aspiration of material that has penetrated into the laryngeal vestibule, intact cough reflex Grade II = aspiration < 10 % of the bolus, intact cough reflex Grade III = aspiration of < 10 % of the bolus, reduced cough reflex or aspiration of > 10 % of the bolus, intact cough reflex Grade IV = aspiration of > 10 % of the bolus, reduced cough reflex Penetration-Aspiration Scale Score Thin Liquid via teaspoon: Result: 1= does not enter airway Thin Liquid via teaspoon Trial 2: Result: 1= does not enter airway Thin Liquid via small single sip: cup: Result: 1= does not enter airway Thin Liquid via sequential sips: cup: Result: 3= enters airways/above vocal folds/not ejected Thin Liquid via single sip: straw: Result: 3= enters airways/above vocal folds/not ejected (eventually contacting the vocal posts post-prandially during the next trial) Thin Liquid via single sip: straw Trial 2: Result: 7= enters airways/below vocal folds/not ejected despite effort (trace aspiration, weak throat clear response, not effective to expel aspirate) Comment: Grade II = aspiration < 10 % of the bolus, intact cough reflex Pudding: Result: 1= does not enter airway [place] Thick Liquid via small single sip: cup: Result: 1= does not enter airway (trace post-prandial penetration of pharyngeal residue when reswallowing) Thin Liquid via small sip from cup, cued to swallow hard and fast: Result: 3= enters airways/above vocal folds/not ejected Thin Liquid via small single sip: cup Chin tuck: Result: 3= enters airways/above vocal folds/not ejected Cookie: Result: 1= does not enter airway Thin Liquid via small single sip: cup Trial 2: Result: 1= does not enter airway Oral Phase Labial Seal: No Labial Escape Tongue Control During Bolus Hold: Posterior escape of less than half of bolus Bolus Preparation/Mastication: Slow prolonged chewing/mashing with complete recollection Bolus Transport/Lingual Motion: Repetitive/disorganized tongue motion Oral Residue: Residue collection on oral structures Pharyngeal Phase Initiation of Pharyngeal Swallow: Bolus head in pyriforms Soft Palate Elevation: No bolus between soft palate and pharyngeal wall Laryngeal Elevation: Partial superior movement thyroid cart/partial apprx aryt- epig petiole Anterior Hyoid Excursion: Partial anterior movement Epiglottic Movement: Partial inversion Laryngeal Vestibule Closure at Height of Swallow: Incomplete; narrow column of air/contrast in laryngeal vestibule Pharyngeal Stripping Wave: Present - diminished Pharyngoesophageal Segment Opening: Parital distension and partial duration; parital obstruction of flow Tongue Base Retraction: Wide column of contrast between tongue base & post. pharyngeal wall Pharyngeal Residue: Collection of residue within or on pharyngeal structures Esophageal Phase Esophageal Clearance: Esophageal retention w/ retrograde flow through pharyngoesophageal seg Treatment Strategies Effects of treatment strategies attemped:: * Reduced bolus size: effective * Chin tuck: not effective to improve laryngeal vestibule closure or reduce pe netration * Effortful swallow: somewhat effective * Cued cough and re-swallow: somewhat effective to move penetrated contrast upwards away from the vocal folds, but did not consistently clear penetration from the laryngeal vestibule d/t weakened cough response Diagnosis/Impression Diagnosis: Mild-Moderate Oropharyngeal Dysphagia Impression: The oral phase is marked by... * reduced oral bolus containment w/ ~half of each bolus (both liquids and solids) spilling posteriorly into the pharynx and pooling in the pyriform sinuses prior to swallow onset * no anterior bolus leakage * slow but sufficient mastication of regular textures * repetitive lingual motion appreciated w/ prolonged and mildly disorganized AP bolus transit The pharyngeal phase is characterized by... * delayed pharyngeal swallow onset timing resulting in suboptimal bolus location upon swallow onset - boluses lining the aryepiglottic folds and pooling w/in the pyriforms prior to swallow initiation * decreased anterior hyoid excursion w/ incomplete epiglottic inversion * reduced tongue base retraction and diminished pharyngeal stripping appreciation * significant post-prandial pharyngeal residue accumulation appreciated along the tongue base and into the valleculae, with pudding stranding from the epiglottic tip to the pharyngeal wall w/ reduced sensory awareness suspected as he did not recognize the need to swallow again, despite verbal cues, stating I don't have anything to swallow. * a cued double swallow and/or liquid wash was effective to improve pharyngeal bolus clearance * trace/mild penetration intermittently occurring w/ thin/mildly thick liquids and regular texture cookie, penetration resultant from pharyngeal residue entering the laryngeal vestibule post prandially * trace penetration lined the anterior wall of the laryngeal vestibule, eventually descending to contacting the vocal folds - weak throat clearing response was independently initiated, although not strong/effective enough to expel penetration/aspiration * reduced PES distention/duration appreciated w/ cricopharyngeal hypertrophy which negatively impacted pharyngoesophageal transit The esophageal phase is characterized by... * slowed esophageal clearance w/ retrograde bolus flow noted in the lower esophagus Recommendations Diet: Regular Textures and Thin Liquids Compensatory Strategies: Small Bites, Small Sips, No Straws, Multiple Swallows (double swallow to improve pharyngeal clearance w/ purees/solids), Alternate bites/solids and sips/liquids, Sitting upright, Remain sitting upright for 30 minutes after PO intake and Assist with verbal cues to use recommended strategies (Encourage the patient to monitor his vocal quality w/ PO intake - cough/re-swallow at reasonable intervals t/o meal and any time wet VQ is apparent) Supervision: Distant Supervision Recommend Repeat Modified Barium Swallow: TBD Need for Skilled Speech Therapy Services: Yes Comment: Continued skilled ST intervention is recommended for dysphagia management, including: * education re: MBSS findings, results/recommendations * instruction w/ compensatory strategies/aspiration precautions to decrease risk for penetration/aspiration/pneumonia * oropharyngeal strengthening exercises targeting tongue base retraction, pharyngeal contraction, anterior hyoid movement, laryngeal vestibule closure and respiratory muscle strength training to improve cough strength/efficacy Education Completed: 1. Described result of evaluation., 2. Pt understands evaluation & agrees with goals and treatment plan. and 7. Pt requires further education on strategies & risks. Comment: MBSS findings/recommendations reviewed w/ Dr. Ochoa following study completion, who reports intent to call his daughter to discuss the results & implication of MBSS findings and subsequent recommendations/plan of care. Status Active ST Patient: Active Contact Information [facility] Speech Therapy:: Siobhan Bullock M.A., [facility]-LOAN REVIEW ANALYST Speech-Language Pathologist [address] [place] [address] [email or web address] [phone]
--- NOTE | 2023-07-28 17:37 | CASEMGMT ---
Social Work SW met with patient at bedside and son, Yrn Santos via phone to complete initial intake assessment. Patient has vascular dementia, but could recall place, name, living arrangements. Patient confirmed demographics and emergency contact information. Patient was able to inform SW that prior to admission, he was utilizing rollator in home. Patient believes that he has been losing his ability to ambulate over the past few months. Patient informed SW that he has Advanced Directive with son, Yrn as primary decision maker. Yrn informed SW that he will provide copy of Advanced Directive for medical records. Patient confirmed that his code status is DNR. Patient informed SW that he discontinued some of his medications with his physician a few weeks ago. SW discussed patient's transition of care plans for nursing home care. Patient informed SW that he is unable to ambulate and has concerns that he will not improve. Patient's son informed that the patient's family is reviewing different places and care plans. Patient's son will provide updates as patient progress and family review. Patient's family was notified of Medicare Insurance coverage and benefits. Medicare approved patient for 16 days; anticipated discharge 08/08. Discharge: [facility]
[2023-07-28 19:22] VITALS: BP 128/80; PULSE 89; RESP 16; TEMP 37.1; O2SAT 94
[2023-07-28] MEDS: Tamsulosin HCl 0.4 MG Capsule PO (20:20)
[2023-07-28] MEDS: Mirtazapine 15 MG Tablet PO (20:20)
[2023-07-28] MEDS: Finasteride 5 MG Tablet PO (20:20)
[2023-07-28 20:30] VITALS: PULSE 89; RESP 16; O2SAT 94
[2023-07-28] MEDS: QUEtiapine 25 MG Tablet PO (23:00)
[2023-07-29 06:00] VITALS: BMI 24.0
[2023-07-29 07:29] VITALS: BP 159/86; PULSE 58; RESP 16; TEMP 36.3; O2SAT 98
[2023-07-29] MEDS: Aspirin E.C. 81 MG Tablet PO (08:11)
[2023-07-29] MEDS: Nystatin Powder 15gm Bottle 1 APPLIC TOPICAL ×2 (08:12→21:17)
[2023-07-29] MEDS: Senna/Docusate Sodium 1 Tablet 2 TABLET PO ×2 (08:19→21:17)
[2023-07-29] MEDS: Tamsulosin HCl 0.4 MG Capsule PO (19:42)
[2023-07-29] MEDS: Finasteride 5 MG Tablet PO (19:44)
[2023-07-29 20:00] VITALS: BP 125/70; PULSE 84; RESP 16; TEMP 36.6; O2SAT 98
[2023-07-29] MEDS: Mirtazapine 15 MG Tablet PO (21:18)
[2023-07-30] MEDS: Senna/Docusate Sodium 1 Tablet 2 TABLET PO ×2 (08:20→20:28)
[2023-07-30] MEDS: Aspirin E.C. 81 MG Tablet PO (08:20)
[2023-07-30] MEDS: Nystatin Powder 15gm Bottle 1 APPLIC TOPICAL ×2 (08:21→20:28)
[2023-07-30 08:35] VITALS: BP 146/87; PULSE 72; RESP 17; TEMP 36.5; O2SAT 97
--- NOTE | 2023-07-30 09:33 | PCM.PROGNOTE ---
Subjective Subjective Afebrile VSS -blood pressure is consistently mildly elevated. He is asymptomatic. Maintaining appropriate oxygen saturation on RA Oral intake - FOOD good FLUIDS good Discussed with nursing - no problems that need addressed. Has occasional urinary incontinence but, he is continent more often that not. Reviewed the THERAPY notes Medication list reviewed. Denies pain, lightheadedness, SOB, N/V/Abd pain and dysuria. His only really complaint is these don't work meaning his legs. Objective Data Objective Data Vital Signs: Vital Signs Temp Pulse Resp BP Pulse Ox O2 Del Method 97.7 F L 72 17 146/87 H 97 Room Air 07/30/23 08:35 07/30/23 08:35 07/30/23 08:35 07/30/23 08:35 07/30/23 08:35 07/30/23 08:35 Oxygen Delivery Method Room Air Weight: 182 lb 12.211 oz Body Mass Index (BMI) 24.0 Intake & Output: Intake and Output for Last 24 Hours 07/28/23 07/29/23 07/30/23 23:59 23:59 23:59 Intake Total 1730 / 1730 1880 / 1880 420 / 420 Output Total 1380 / 1380 1125 / 1125 350 / 350 Balance 350 / 350 755 / 755 70 / 70 Lab / Micro Data 07/24/23 05:34 07/24/23 05:34 Physical Exam Const alert and no apparent distress Constitutional Narrative: He is adamant that he is doing better since his meds were discontinued and he is only taking 3 medications.......FLomax and Proscar are 2 of the meds he takes. He does not realize how much and how rapidly he has declined recently. He had to lower himself to the floor because he did not want to fall because he could not walk from the BR to his bedroom due to weakness. General Appearance: cooperative HEENT head/scalp atraumatic Eyes PERRL, EOMs intact bilaterally, conjunctivae normal and no scleral icterus Neck supple and No nodes Chest Chest: symmetrical chest wall rise Resp clear to auscultation bilaterally Resp Narrative: Not tachypneic or labored. Effort and Inspection: able to speak in complete sentences Cardio regular rate, regular rhythm, no murmurs, no rub and no gallops GI normal to inspection, nondistended, normoactive bowel sounds, soft to palpation and non-tender GI Narrative: No guarding with palpation. Continent of stool. no CVA tenderness Narrative: Occasional urinary incontinence. Bladder / Kidney Exam: No catheter in place Extremity no calf tenderness and no pedal edema Extremity Narrative: Osteoarthritic changes in his joints of the hands. Skin no wounds General Skin Exam: no breakdown Rashes: no rashes Neuro CN's II-XII intact bilaterally and moves all extremities Neuro Narrative: Very fearful of falling when he is ambulating. Crouched posture and head down. Abandons the WW early when trying to sit down from standing. Needs voice cues to take longer steps. Can not retain information/instructions due to very poor short term memory. Shuffling gait. Very hard of hearing which impairs ability to understand instruction. Cannot understand how to do [id number] and [id number] even with visual and verbal cues. Psych Psych Narrative: He is anxious and also depressed. Thinks about dying a lot. Stopped eating a few days ago because he wanted to but, he has changed his mind for now. He gets tearful when I talk about his , how long they were . Feels like it is OK to . He thinks his children are in a good place and he does not want to go on if he can not regain the strength in his legs. He is not suicidal. Denies hallucinations. No delusions. Short term memory is poor but, he is already remembering names of the staff he has met since arrival on rehab. 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 Continue therapy 2. I spoke with his dtr Deepika on the phone for 25 minutes today. She and her brothers are all looking at different living situations for senior care care at [facility] from acute rehab. diane is in agreement with living somewhere he can have assistance 20/10 for anything he needs. He is quite fearful about walking/falling. Has a retro lean and does not stand up tall when using the WW. Needs a lot of voice and visual cues. He has had no behavioral problems on rehab. He does sundown at night and he gets restless but this is doing better with restarting Remeron and using PRN Seroquel. He has not had to have a dose of Seroquel since 07/28/23. He is able to tell me that he should not be living at home with no supervision. The [facility] date Medicare gave us is 08/09/23. I D/W the SW. Will try for a conference call with his family, myself and the early next week so that we have a plan in place. I recommend he have a hospital bed at [facility].......he does aspirate at times and needs the HOB elevated. He would also benefit from a lift chair to assist him in getting up from a chair since his legs are weak. 3. He is asymptomatic with the elevated BP. Will limit medications to those that contribute to the quality of life and not worry about ASA, statin, antihypertensives. Continue the Flomax and Proscar. Charges/Coding Visit Charges Inpatient E&M: 61863 Subs Hosp L1
--- NOTE | 2023-07-30 15:45 | CHAPLAIN ---
Type of Pastoral Visit _x__ Initial Visit ___ Follow-up Visit ___ On-call Visit ___ General Patient Visit ___ Spiritual Assessment ___ Family Conference ___ Bereavement ___ Rapid Response ___ Code Blue ___ Other (describe below) Pastoral Care Referral From ___ Patient ___ Family ___ Nurse _x__ Physician ___ Herbarium Worker ___ Assembler Camper ___ Other (describe below) Sacrament/Intervention _x__ Active listening ___ Anointing ___ Taoist ___ Bereavement ___ Communion _x__ Ginny exploration ___ _x__ Life review _x__ Prayer ___ Reconciliation ___ Sacrament of Sick _x__ Supportive presence ___ Wedding ___ Other (describe below) Pastoral Comments recommended visit from ; pt is napping but awakens easily to his name; pt had been 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
[2023-07-30 20:00] VITALS: BP 132/74; PULSE 86; RESP 17; TEMP 37; O2SAT 97
[2023-07-30] MEDS: Tamsulosin HCl 0.4 MG Capsule PO (20:28)
[2023-07-30] MEDS: Mirtazapine 15 MG Tablet PO (20:28)
[2023-07-30] MEDS: Finasteride 5 MG Tablet PO (20:28)
[2023-07-31 07:43] VITALS: BP 104/81; PULSE 74; RESP 18; TEMP 36.4; O2SAT 95
[2023-07-31] MEDS: Senna/Docusate Sodium 1 Tablet 2 TABLET PO ×2 (08:06→20:52)
[2023-07-31] MEDS: Aspirin E.C. 81 MG Tablet PO (08:06)
[2023-07-31] MEDS: Nystatin Powder 15gm Bottle 1 APPLIC TOPICAL ×2 (08:10→20:53)
[2023-07-31 09:30] VITALS: PULSE 70
--- NOTE | 2023-07-31 15:44 | CASEMGMT ---
Addendum entered by Avinash Cano 07/31/23 16:36: Patient's daughter, Deepika would like to attend Thursday's Rehab Teams Meeting via phone. Original Note: Social Work SW received a call from patient's daughter, Deepika Huitron [phone] regarding transition of care plan. Deepika informed JÚNIOR that the family has identified transition of care plans for marketing budget analyst care at facility [facility] located at [address], [place] [address]. Deepika provided contact information for Director Elli Ram [phone] and fax: [phone]. Deepika informed JÚNIOR that she would like patient to transition to [facility] post IPR. Deepika requested a hospital bed at this time. JÚNIOR will discuss obtaining a hospital bed with Physician and facility. JÚNIOR spoke with Elli at [facility] in [place] who confirmed acceptance. Elli confirmed local DME company [employer] or [employer] SW faxed referral to [facility]
[2023-07-31] MEDS: Finasteride 5 MG Tablet PO (20:52)
[2023-07-31] MEDS: Tamsulosin HCl 0.4 MG Capsule PO (20:52)
[2023-07-31] MEDS: Mirtazapine 15 MG Tablet PO (20:52)
[2023-07-31 21:00] VITALS: BP 120/79; PULSE 64; RESP 16; TEMP 37; O2SAT 95
[2023-08-01 07:45] VITALS: BP 147/87; PULSE 72; RESP 18; TEMP 36.6; O2SAT 96
[2023-08-01] MEDS: Senna/Docusate Sodium 1 Tablet 2 TABLET PO (08:02)
[2023-08-01] MEDS: Aspirin E.C. 81 MG Tablet PO (08:02)
[2023-08-01] MEDS: Nystatin Powder 15gm Bottle 1 APPLIC TOPICAL ×2 (08:02→20:23)
[2023-08-01] MEDS: Mirtazapine 15 MG Tablet PO (20:23)
[2023-08-01] MEDS: Tamsulosin HCl 0.4 MG Capsule PO (20:23)
[2023-08-01] MEDS: Finasteride 5 MG Tablet PO (20:23)
[2023-08-01 22:00] VITALS: BP 123/76; PULSE 68; RESP 18; TEMP 37.1; O2SAT 96
[2023-08-02 08:12] VITALS: BP 142/69; PULSE 75; RESP 17; TEMP 37.2; O2SAT 95
[2023-08-02] MEDS: Aspirin E.C. 81 MG Tablet PO (09:20)
[2023-08-02] MEDS: Nystatin Powder 15gm Bottle 1 APPLIC TOPICAL ×2 (09:20→20:03)
[2023-08-02] MEDS: Senna/Docusate Sodium 1 Tablet 2 TABLET PO ×2 (09:21→20:03)
[2023-08-02 10:00] VITALS: RESP 18
[2023-08-02 19:53] VITALS: BP 128/66; PULSE 98; RESP 17; TEMP 36.2; O2SAT 96
[2023-08-02] MEDS: Tamsulosin HCl 0.4 MG Capsule PO (19:53)
[2023-08-02] MEDS: Finasteride 5 MG Tablet PO (19:54)
[2023-08-02] MEDS: Mirtazapine 15 MG Tablet PO (20:03)
[2023-08-03 07:44] VITALS: BP 128/78; PULSE 82; RESP 18; TEMP 36.7; O2SAT 94
[2023-08-03] MEDS: Senna/Docusate Sodium 1 Tablet 2 TABLET PO ×2 (08:09→20:18)
[2023-08-03] MEDS: Aspirin E.C. 81 MG Tablet PO (08:10)
[2023-08-03] MEDS: Nystatin Powder 15gm Bottle 1 APPLIC TOPICAL ×2 (08:12→20:13)
--- NOTE | 2023-08-03 10:00 | PCM.PROGNOTE ---
Subjective Subjective Missael was seen on team rounds today. We tried calling all of his children but, no one was available to participate in rounds by phone. Afebrile VSS - Maintaining appropriate oxygen saturation on RA Oral intake - FOOD good FLUIDS good Discussed with nursing - no problems that need addressed Reviewed the THERAPY notes - He is not progressing in therapy. He has a great fear of falling and this impairs his ability to stand I believe more so than weakness in his legs. Medication list reviewed. Has not received any Seroquel since the and he is sleeping well at night now. Denies pain, lightheadedness, cephalgia, cough, shortness of breath, nausea/vomiting, suprapubic pain, dysuria and calf tenderness. His only complaint is his legs are weak. Tells me that he is sleeping well at night. The restlessness and insomnia have improved significantly with the addition of Seroquel to the drug regimen......also likely improving due to restarting Remeron. Objective Data Objective Data Vital Signs: Vital Signs Temp Pulse Resp BP Pulse Ox O2 Del Method 98.1 F 82 18 128/78 H 94 Room Air 08/03/23 07:44 08/03/23 07:44 08/03/23 07:44 08/03/23 07:44 08/03/23 07:44 08/03/23 07:44 Oxygen Delivery Method Room Air Weight: 182 lb 12.211 oz Body Mass Index (BMI) 24.0 Intake & Output: Intake and Output for Last 24 Hours 08/01/23 08/02/23 08/03/23 23:59 23:59 23:59 Intake Total 970 / 970 3000 / 3000 120 / 120 Output Total 850 / 850 1310 / 1310 300 / 300 Balance 120 / 120 1690 / 1690 -180 / -180 Lab / Micro Data 08/04/23 05:24 08/04/23 05:24 Physical Exam Const alert and no apparent distress Constitutional Narrative: sitting in the recliner at the bedside watching the [employer] on TV. He appears comfortable. He is not tachypneic and he does not appear to be in any pain. General Appearance: cooperative HEENT head/scalp atraumatic Eyes PERRL, EOMs intact bilaterally, conjunctivae normal and no scleral icterus Neck supple and No nodes Chest Chest: symmetrical chest wall rise Resp normal respiratory effort, normal air movement and clear to auscultation bilaterally Resp Narrative: Not tachypneic or labored. Effort and Inspection: Negative for tachypneic Cardio regular rate, regular rhythm and no gallops GI normal to inspection, nondistended, normoactive bowel sounds, soft to palpation and non-tender GI Narrative: No guarding with palpation no CVA tenderness Narrative: Occasional urinary incontinence. Bladder / Kidney Exam: No catheter in place Extremity no calf tenderness Extremity Narrative: PATRICK hose are in place. General Extremity: Negative for edema Skin no wounds, no jaundice and no petechiae General Skin Exam: no breakdown Rashes: no rashes Neuro CN's II-XII intact bilaterally and moves all extremities Neuro Narrative: Very fearful of falling when he is ambulating. Crouched posture and head down. Abandons the WW early when trying to sit down from standing. Needs voice cues to take longer steps. Can not retain information/instructions due to very poor short term memory. Shuffling gait. Very hard of hearing which impairs ability to understand instruction. Cannot understand how to do [id number] and [id number] even with visual and verbal cues. Psych Psych Narrative: Restlessness has improved with restarting Remeron and adding Seroquel at at bedtime. He still sundown's in the evening. He has been cooperative and pleasant. 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 Continue therapy 2. DC Seroquel and continue Remeron 3. Check a CBC without differential and BMP in the a.m. 4. SW will contact family and determine what day they would like to transport him to the [facility] in [facility]. He needs 24/ supervision and is no longer able to live on his own. Charges/Coding Visit Charges Inpatient E&M: 06999 Subs Hosp L2
--- NOTE | 2023-08-03 13:08 | CASEMGMT ---
Addendum entered by Avinash Cano 08/03/23 16:24: Facility name [facility] Original Note: Social Work IDT met with patient at bedside to complete care plans. SW attempted to contact patient's daughter, Deepika and son, Flavio; No answer. Care plan commenced with patient. Discussed patient progress with therapy (PT/OT/ST) and nursing. Patient continues to require assistance with therapy. Patient has anticipated insurance discharge date 08/08. SW discussed patient discharge plan as discussed with daughter on Thursday. Family would like patient to discharge to [facility] in [place], [place]. Patient informed staff that he is agreeable to discharge plan. SW will continue to follow to coordinate discharge day to facility. GAURANG Olivares
--- NOTE | 2023-08-03 16:20 | CASEMGMT ---
Addendum entered by Avinash Cano 08/03/23 17:11: Physician completed script for hospital bed. SW to submit to AIYANA Collado [facility] Original Note: Social Work SW received faxed from [employer] requesting Physician to complete H&P. JÚNIOR provided document to Physician, Dr. Ochoa. GAURANG Olivares
[2023-08-03 20:04] VITALS: O2SAT 95
[2023-08-03] MEDS: Mirtazapine 15 MG Tablet PO (20:12)
[2023-08-03] MEDS: Finasteride 5 MG Tablet PO (20:12)
[2023-08-03] MEDS: Tamsulosin HCl 0.4 MG Capsule PO (20:12)
[2023-08-03 22:00] VITALS: BP 150/90; PULSE 75; RESP 18; TEMP 36.9; O2SAT 95
--- NOTE | 2023-08-03 22:40 | NURSING ---
Pt refusing o2 @ HS despite education.
[2023-08-04 05:46] LABS: Hematocrit 39.8 % (40-54); Hemoglobin 12.7 g/dL (13.0-16.5); Mean Corp Hgb Conc 31.9 g/dL (32-36); Mean Corpuscular Volume 97.1 fL (80-94); Mean Platelet Vol. 10.1 fl (6.2-12.0); Platelet Count 225 K/mm3 (150-450); RBC Distribution Width CV 12.6 % (11.6-14.6); RBC Distribution Width SD 45.4 fl (35.1-43.9); White Blood Count 6.5 K/mm3 (4.4-11.0)
[2023-08-04 06:03] LABS: Anion Gap 2 (5-15); BUN 21 mg/dL (7-18); BUN/Creat Ratio 23.1 RATIO (10-20); Calcium,Total 9.3 mg/dL (8.5-10.1); Chloride 108 mmol/L (98-107); Creatinine, Serum 0.91 mg/dL (0.70-1.30); EST Glomerular Filtration Rate 83 mL/min (>60); Est Glom Filt Rate - Afr Amer 101 mL/min (>60); Estimated Creatinine Clearance 62.19 ml/min; Glucose 99 mg/dL (74-106); Potassium 4.5 mmol/L (3.5-5.1); Sodium Level 137 mmol/L (136-145)
[2023-08-04 07:46] VITALS: BP 155/68; PULSE 68; RESP 18; TEMP 36.4; O2SAT 95
[2023-08-04] MEDS: Aspirin E.C. 81 MG Tablet PO (08:12)
[2023-08-04] MEDS: Senna/Docusate Sodium 1 Tablet 2 TABLET PO ×2 (08:12→20:32)
[2023-08-04] MEDS: Polyethylene Glycol 3350 17 GM PACKET PO (08:13)
--- NOTE | 2023-08-04 10:58 | CASEMGMT ---
Social Work SW received a call from patient's daughter, Deepika Huitron informing SW that she would like additional information regarding an appropriate bed for patient. Deepika informed JÚNIOR that she was notified that the patient is unable to obtain a hospital bed with guard rails for memory care unit unless he was hospice. Deepika informed JÚNIOR that the patient would require a be that is adjustable with guard rails. SW redirected Deepika to contact [employer] or other [employer] support company to determine appropriate bed. Deepika informed JÚNIOR that she would like the patient to discharge on 08/07/2023 to [facility] in [place]. Family will provide transportation at discharge. SW discussed continued therapy on memory care. Patients daughter, Deepika informed JÚNIOR that she would like home health care if possible for continued therapy services at [facility]. SW to contact Elli at [facility] to coordinate discharge plans. Discharge: 08/07/2023 [facility]- Memory Care unit. GAURANG Olivares
--- NOTE | 2023-08-04 12:25 | PCM.PROGNOTE ---
Subjective Subjective Afebrile VSS - Maintaining appropriate oxygen saturation on RA Oral intake - FOOD good FLUIDS, some days good and some days not. Discussed with nursing - no problems that need addressed. Sleeping well at night. Seroquel has been discontinued and he is currently taking only Remeron at . Reviewed the THERAPY notes - Not progressing. Medication list reviewed. No complaints today. He is sleeping well and he denies pain. No cough and no SOB. Eating well and having regular BM's. Dementia impairs ability to do a full ROS. Denies nausea and abdominal pain. Family will transport him to the [facility] on Thursday early in the AM. All lab from this morning is personally reviewed. White blood cell count is normal at 6.5. Hemoglobin has dropped from 14.4-12.7 but I suspect this is due to better hydration. Platelets are within normal limits. Sodium and potassium are both normal. BUN is stable at 21 currently and the creatinine is 0.91, down from 0.97 on 07/24/2023. Objective Data Objective Data Vital Signs: Vital Signs Temp Pulse Resp BP Pulse Ox O2 Del Method 97.6 F L 68 18 155/68 H 95 Room Air 08/04/23 07:46 08/04/23 07:46 08/04/23 07:46 08/04/23 07:46 08/04/23 07:46 08/04/23 07:46 Oxygen Delivery Method Room Air Weight: 182 lb 12.211 oz Body Mass Index (BMI) 24.0 Intake & Output: Intake and Output for Last 24 Hours 08/02/23 08/03/23 08/04/23 23:59 23:59 23:59 Intake Total 3000 / 3000 800 / 800 240 / 240 Output Total 1310 / 1310 650 / 800 650 / 650 Balance 1690 / 1690 150 / 0 -410 / -410 Lab / Micro Data 08/04/23 05:24 08/04/23 05:24 Labs: Laboratory Results - last 24 hr 08/04/23 05:24: WBC 6.5, RBC 4.10 L, Hgb 12.7 L, Hct 39.8 L, MCV 97.1 H, MCH 31.0, MCHC 31.9 L, RDW Std Deviation 45.4 H, RDW Coeff of Zhou 12.6, Plt Count 225, MPV 10.1, Sodium 137, Potassium 4.5, Chloride 108 H, Carbon Dioxide 27.0, Anion Gap 2 L, BUN 21 H, Creatinine 0.91, Estim Creat Clear Calc 62.19, Est GFR (MDRD) Af Amer 101, Est GFR (MDRD) Non-Af 83, BUN/Creatinine Ratio 23.1 H, Glucose 99, Calcium 9.3 Physical Exam Const alert and no apparent distress Constitutional Narrative: Sitting in the recliner at the bedside watching TV. He is pleasant and making good eye contact with me when we are talking. He is very [place]. General Appearance: cooperative Resp normal respiratory effort, normal air movement and clear to auscultation bilaterally Resp Narrative: Not tachypneic or labored. Cardio regular rate, regular rhythm, no rub and no gallops Cardio Narrative: No ectopy GI normal to inspection, nondistended, normoactive bowel sounds, soft to palpation and non-tender GI Narrative: No guarding with palpation. Having regular bowel movements. Extremity no calf tenderness Extremity Narrative: PATRICK hose are in place. 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 Continue therapy 2. No changes to the drug regimen today. 3. Repeat lab in the a.m. Charges/Coding Visit Charges Inpatient E&M: 59351 Subs Hosp L1
--- NOTE | 2023-08-04 13:29 | PCM.TXEXTCAR ---
Diet Diet Order/Speech Therapy: 07/23/23 13:22 Diet: Regular - General Diet Comments: Use built up handles and cut food to bite sized pieces, NO STRAWS Routine Orders/Code Status Enema Type: Fleetz Enema Frequency: Daily PRN Suppository Type: Dulcolax 10mg Suppository Frequency: Daily PRN Change De Guzman Catheter: N/A. He is not reatining urine. O2 Liters per Minute: 2 LPM O2 Frequency: PRN Keep PO Greater than or Equal to (%): 90 Code Status: DNRCC-A (No intubation) Therapies Weight Bearing: Full weight bearing (His legs are weak and he is very fearful of walking. WC will likely be his best way to get around going forward. ) Extremity Affected:: Bilateral Lower Physical Therapy: Eval and Treat Occupational Therapy: Eval and Treat Problem/Diagnosis (1) Physical debility: Status: Chronic Code(s): R53.81 - Other malaise Plan: Plan on DC to [facility] 08/07/23. He needs 20/10 supervision and can no longer live by himself. Comment: Progressive vascular dementia with severe Parkinsonism. No response to Sinemet in the past. He has dysphagia and has lost the ability to ambulate. (2) Generalized muscle weakness: Status: Chronic Code(s): M62.81 - Muscle weakness (generalized) (3) Depression: Status: Chronic Code(s): F32.A - Depression, unspecified Plan: Continue Remeron. He is sleeping much better at night now and has a good appetite. He is no longer telling me he is ready to and is not suicidal at DC. I think he will benefit from socialization at an [facility] so he is not by himself all the time. (4) Vascular dementia: Status: Chronic Code(s): F01.50 - Vascular dementia, unspecified severity, without behavioral disturbance, psychotic disturbance, mood disturbance, and anxiety (5) Parkinsonism: Status: Chronic Code(s): G20.C - Parkinsonism, unspecified (6) BPH (benign prostatic hyperplasia): Status: Chronic Code(s): N40.0 - Benign prostatic hyperplasia without lower urinary tract symptoms Plan: Continue Flomax and Proscar. Has not been retaining urine and he denies lightheadedness. (7) Sundowning: Status: Acute Code(s): F05 - Delirium due to known physiological condition Comment: Gets more confused at night and also restless with difficulty falling asleep. Much better with restarting Remeron. Sleeping well at night now. Only had 2 doses of Seroquel during admission to rehab and last dose was on 07/18/23. Seroquel has been discontinued. Plan Plan Discharge to [facility] in [place] on 08/07/23. Memory care unit. Family will provide transportation. Dtr requests HHC at [facility] for continued PT/OT. Allergies/Procedures Done in Hospital Allergies enalapril maleate [From Vasotec] Allergy (Verified 10/14/21 13:34) THOUGHT I WAS HAVING A HEART ATTACK enalaprilat dihydrate [From Vasotec] Allergy (Verified 10/14/21 13:34) Other Penicillins Allergy (Verified 10/14/21 13:34) HIVES AND SWELLING tetanus and diphtheria toxoids [tetanus & diphtheria toxoids] Allergy (Verified 10/14/21 13:34) Other TETANUS W/ HORSE SERUM ONLY loratadine Adverse Reaction (Verified 11/15/21 08:12) Other DROPPED BLOOD PRESSURE Procedures: - (Modified barium swallow on 07/28/2023.Diagnosis/Impression Diagnosis: Mild-Moderate Oropharyngeal Dysphagia Impression: Interventions include reduced bolus size when eating, effort for swallow, cued cough and reswallow.) Type of Care/Length of Stay Estimated LOS: More Than 30 Days Type of Care Needed: [facility] Rehab Potential: Poor Prognosis: Poor Additional Orders/Day of Discharge Additional Orders: [facility] H&P will serve as current which was dated: 07/23/23 Day of Discharge: 08/07/23 Dietary and Speech Recommendations Dietitian Recommendations/Changes: Continue liberal Regular diet as ordered. Regular textures and thin liquids. Please consult if changes in pt nutritional status. Discharge Plan Admission Admit Date/Time: 07/23/23 12:00 Primary Reason for Your Visit: Debility due vascular dementia/ Parkinsonism. Attending Provider: Annmarie Ochoa Primary Care Provider: Cooper Hawk Discharge Orders/Prescriptions Prescriptions: New sennosides-docusate sodium [Stool Softener-Stimulant Laxat] 8.6-50 mg Tablet 2 tab PO BID Qty: 1 0RF bisacodyl 10 mg Suppository 10 mg CO X1 PRN (Reason: Constipation) Qty: 1 0RF mirtazapine 15 mg Tablet 15 mg PO 2100 Qty: 30 0RF alum-mag hydroxide-simeth [Mag-Al Plus Extra Strength] 400-400-40 mg/5 mL Suspension 15 ml PO Q6H PRN PRN (Reason: Heartburn Or Indigestion) Qty: 15 0RF Continued acetaminophen [Tylenol Extra Strength] 500 mg tablet 1,000 mg PO TID PRN (Reason: pain) finasteride 5 MG tablet 5 mg PO DAILY aspirin 81 MG tablet 81 mg PO DAILY@0800 Patient Comments: [facility] tamsulosin 0.4 mg capsule 0.4 mg PO DAILY Discontinued carbidopa-levodopa 25-100 mg tablet 1 tab PO TID nitroglycerin 0.4 mg tablet, sublingual 0.4 mg SUBLINGUAL Q5-15M PRN (Reason: chest pain) Qty: 90 6RF polyethylene glycol 3350 [Miralax] 17 gram/dose powder 17 g PO DAILY calcium carbonate-vitamin D3 1 EACH tablet,chewable 1 ea PO QHS ICaps AREDS2 250 mg-200 unit -12.5 mg-1 mg capsule 1 cap PO BID Referrals / Follow Up: Jarad Garcia-Neurology [Other] - Within 2 Weeks (family to make f/u appt) Cooper Hawk MD [Primary Care Provider] - Within 1 Week (family to make f/u appt ) Disposition Disposition (needs filled in before D/C Order can be placed): Assisted Living (4) Vascular dementia Qualifiers: Dementia severity: severe Dementia behavioral or psychological symptom: unspecified whether behavioral, psychotic, or mood disturbance or anxiety Qualified Code(s): F01.C0 - Vascular dementia, severe, without behavioral disturbance, psychotic disturbance, mood disturbance, and anxiety (5) Parkinsonism Qualifiers: 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
[2023-08-04 13:53] LABS: Thyroid Stim Hormone (TSH) 3.52 uIU/mL (0.358-3.74)
--- NOTE | 2023-08-04 13:54 | DS.PCM_ITS ---
Providers Date of Admission: 07/23/23 Date of Discharge: 08/07/23 Primary Care Physician: Dr. Cooper Hawk MD none Reason For Visit: DEBILITY Diagnosis Discharge Diagnosis (1) Physical debility: Status: Chronic Code(s): R53.81 - Other malaise Plan: Plan on DC to ECF 08/07/23. He needs 24/ supervision and can no longer live by himself. (2) Generalized muscle weakness: Status: Chronic Code(s): M62.81 - Muscle weakness (generalized) (3) Depression: Status: Chronic Code(s): F32.A - Depression, unspecified Plan: Continue Remeron. He is sleeping much better at night now and has a good appetite. He is no longer telling me he is ready to and is not suicidal at DC. I think he will benefit from socialization at an ECF so he is not by himself all the time. 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 Has not been retaining urine and he denies lightheadedness. (7) owning: Status: Acute Code(s): F05 - Delirium due to known physiological condition Plan Plan Discharge to [facility] on 08/07/23. Memory care unit. Family will provide transportation. Dtr requests HHC at [facility] for continued PT/OT. Medications at Discharge Home Medications aspirin 81 mg tablet,delayed release 81 mg PO DAILY@0800 heart halth 09/07/15 finasteride 5 mg tablet 5 mg PO DAILY prostate 09/07/15 acetaminophen 500 mg tablet (Tylenol Extra Strength) 1,000 mg PO TID PRN pain 10/03/19 tamsulosin 0.4 mg capsule 0.4 mg PO DAILY urination 10/14/21 aluminum-mag hydroxide-simethicone 400 mg-400 mg-40 mg/5 mL oral susp (Mag-Al Plus Extra Strength) 15 ml PO Q6H PRN PRN Heartburn Or Indigestion #15 mL 08/04/23 bisacodyl 10 mg rectal suppository 10 mg FL X1 PRN Constipation #1 ea 08/04/23 mirtazapine 15 mg tablet 15 mg PO 2100 #30 tabs 08/04/23 sennosides 8.6 mg-docusate sodium 50 mg tablet (Stool Softener-Stimulant Laxative) 2 tab PO BID #1 TAB 08/04/23 Hospital Course Operations None Procedures Modified Barium Swallow Summary of Care Provided Minutes Spent on Discharge: 40 Hospital Course: SAVI OROZCO, is a 88 YO M with a hx of vascular dementia with parkinsonism (no response to Sinemet in the past), HLD, coronary artery disease, left circumflex PTCA/stent, hypertension, presbycusis, BPH and GERD who has been declining over the past few years and more rapidly recently. He saw his PCP in Maynd requested to discontinue all medications that did not improve his quality of life. Vitamin C, atorvastatin, magnesium, mirtazapine, omeprazole and oxybutynin were discontinued on 06/20/2023 per Savi's daughter Yas. He seemed to decline faster after that. He had been living by himself but, he had [place]iting [place] come in and check on him twice a day. He has 3 children but, no one lives close. On 07/21/23 he felt very weak when walking back from the BR and he lowered himself to the floor. He did not fall. He was able to get on his knees but, he was unable to get off the floor and tried for about an hour. He was found on the floor by one of the visiting [place] and she was unable to get him up. With the aid of the neighbor he was able to get off the floor and he was taken to [facility] emergency room. CT brain showed no acute findings and lab was unremarkable. UA was negative for infection. Chest x-ray showed no acute findings. He was very weak in the legs in the ED and required assist of 2 people to stand. He was admitted to the hospital. He was evaluated by therapy in the hospital and because he was living by himself and MOD I with ADL's acute rehab was recommended at [place]. He [facility] for 3 hours of therapy daily to restore function/independence at or near his level prior to the recent event. Unfortunately Savi has significant cognitive dysfunction and Parkinsonism with dysphagia and inability to ambulate. He failed to improve with PT/OT/ST. He had a MBS on 07/28/23 that showed mild-moderate oropharyngeal dysphagia. Speech therapy recommended regular textures and thin liquids with small bites, small sips, no straws, slow rate, multiple swallows, alternating bites/solids and sips/liquids, sitting upright at 90 degrees while eating and for 30 minutes afterward. He did not get stronger with PT and in fact he is so afraid to fall he actually got worse. He has a lot of difficulty initiating movement and he is very fearful of falling. At admission to rehab he was able to do a modified TUG test in 150 sec and on 08/03/23 it took him 349 seconds with a wheeled walker at min/mod assist to complete. At admission he was able to ambulate 20 feet with a wheeled walker at min/mod assist and required cues to stand up straight, take larger steps and stay within the base of the wheeled walker. This has not changed since admission to rehab. He requires total assistance with toileting. He can eat and groom himself with supervision/set up but requires max assistance for lower body dressing. At admission to rehab he was not sleeping well and was very restless at night. He gets more confused in the evenings. He was somewhat suicidal and decided to quit eating but, this has resolved. He was started back on Remeron 15mg at bedtime and after a few doses he started eating and drinking better and he was sleeping through the night. The first 2 nights when the Remeron was restarted he also got Seroquel 25 mg because he was not not asleep by 11 Pm and he was very restless. He has not had any Seroquel since 07/28/23 and he is doing well at night. Unfortunately he requires 24/7 supervision now and he is unable to go home alone. His family decided on admission to the memory unit at [facility] in [place]. This is close to his dtr. Missael was agreeable to admission to an ECF and recognizes he needs a lot of assistance to function. Missael was discharged on 08/07/23. His family is to transport him to his new residence. His BP is mildly elevated at times but, he is asymptomatic and at this stage in his life treating the mild HTN will not improve his quality of life. In my opinion he needs Remeron and it contributes to quality of life. He is no longer trying to kill himself with a hunger strike. His appetite and intake are good and he is sleeping well at night. He is pleasant and he is interacting well with staff. He has had no urine retention and he tolerates Proscar and Flomax with no lightheadedness. Orthostatics have been negative. Hemoglobin is stable at 14 at the time of discharge. He has increased confusion in the evenings but, no behavioral problems. He mostly gets fearful about bbeing alone but, he calms right down with just talking with him and reassuring him that he is safe. Physical Exam Const alert and no apparent distress Constitutional Narrative: Sitting in the recliner at the bedside watching TV. He is pleasant and making good eye contact with me when we are talking. He is very [place]. General Appearance: cooperative HEENT head/scalp atraumatic HEENT Narrative: MM are mildly dry. He denies lightheadedness. He is very hard of hearing even with his hearing aids in. Eyes PERRL, EOMs intact bilaterally, conjunctivae normal and no scleral icterus Eyes Narrative: No discharge from the eyes and no mattering of the eyelashes. Neck supple and No nodes General: trachea midline Lymph Lymphatic: Negative for lymphadenopathy Chest Chest: symmetrical chest wall rise Resp normal respiratory effort, normal air movement and clear to auscultation bilaterally Resp Narrative: Not tachypneic or labored. Cardio regular rate, regular rhythm, no rub and no gallops Cardio Narrative: No ectopy GI normal to inspection, nondistended, normoactive bowel sounds, soft to palpation and non-tender GI Narrative: No guarding with palpation. Having regular bowel movements. no CVA tenderness Narrative: Occasional urinary incontinence. Bladder / Kidney Exam: No catheter in place Extremity no calf tenderness Extremity Narrative: PATRICK hose are in place. General Extremity: Negative for edema Skin no wounds, no jaundice and no petechiae General Skin Exam: no breakdown Rashes: no rashes Neuro CN's II-XII intact bilaterally and moves all extremities Neuro Narrative: Very fearful of falling when he is ambulating. Crouched posture and head down. Abandons the WW early when trying to sit down from standing. Needs voice cues to take longer steps. Can not retain information/instructions due to very poor short term memory. Shuffling gait. Very hard of hearing which impairs ability to understand instruction. Cannot understand how to do [id number] and [id number] even with visual and verbal cues. Psych Psych Narrative: Restlessness has improved with restarting Remeron and he is sleeping well now. He still sundown's in the evening. He has been cooperative and pleasant with the staff and he has a great sense of humor. I think he is doing much better wi th the increased socialization. Appearance: appropriate Attitude: No agitated Thought Content: No suicidality and No hallucination(s) Weight / BMI Weight Weight: 182 lb 12.211 oz Body Mass Index (BMI) 24.0 ABG / Lab / Microbiology Data 08/06/23 13:14 08/04/23 05:24 Laboratory: Laboratory Results - last 24 hr 08/04/23 05:24: WBC 6.5, RBC 4.10 L, Hgb 12.7 L, Hct 39.8 L, MCV 97.1 H, MCH 31.0, MCHC 31.9 L, RDW Std Deviation 45.4 H, RDW Coeff of Zhou 12.6, Plt Count 225, MPV 10.1, Sodium 137, Potassium 4.5, Chloride 108 H, Carbon Dioxide 27.0, Anion Gap 2 L, BUN 21 H, Creatinine 0.91, Estim Creat Clear Calc 62.19, Est GFR (MDRD) Af Amer 101, Est GFR (MDRD) Non-Af 83, BUN/Creatinine Ratio 23.1 H, Glucose 99, Calcium 9.3, TSH 3.52 Meaningful Use Info Meaningful Use Meaningful Use Diagnoses (Choose all that apply): None applicable Ischemic Stroke Statin Dosing Therapy Reference: STATIN DOSE THERAPY REFERENCE: * Patients > 75 years receive moderate or high dose statin therapy. * Patients 75 years or YOUNGER should receive HIGH intensity statin dose unless contraindicated. You will be required to document reason for non-treatment if statin daily dose does not meet guidelines. HIGH DOSE STATIN THERAPY DAILY Atorvastatin > than or = to 40 mg Rosuvastatin > than or = to 20 mg Amlodipine + Atorvastatin > than or = to 2.5/40 mg Ezetimibe + Simvastatin 10/80 mg Simvastatin 80mg Discharge Plan Admission Admit Date/Time: 07/23/23 12:00 Primary Reason for Your Visit: Debility due vascular dementia/ Parkinsonism. Attending Provider: Annmarie Ochoa Primary Care Provider: Cooper Hawk Discharge Orders/Prescriptions Prescriptions: New sennosides-docusate sodium [Stool Softener-Stimulant Laxat] 8.6-50 mg Tablet 2 tab PO BID Qty: 1 0RF bisacodyl 10 mg Suppository 10 mg FL X1 PRN (Reason: Constipation) Qty: 1 0RF mirtazapine 15 mg Tablet 15 mg PO 2100 Qty: 30 0RF alum-mag hydroxide-simeth [Mag-Al Plus Extra Strength] 400-400-40 mg/5 mL Breaux spension 15 ml PO Q6H PRN PRN (Reason: Heartburn Or Indigestion) Qty: 15 0RF Continued acetaminophen [Tylenol Extra Strength] 500 mg tablet 1,000 mg PO TID PRN (Reason: pain) finasteride 5 MG tablet 5 mg PO DAILY aspirin 81 MG tablet 81 mg PO DAILY@0800 Patient Comments: [facility] tamsulosin 0.4 mg capsule 0.4 mg PO DAILY Discontinued carbidopa-levodopa 25-100 mg tablet 1 tab PO TID nitroglycerin 0.4 mg tablet, sublingual 0.4 mg SUBLINGUAL Q5-15M PRN (Reason: chest pain) Qty: 90 6RF polyethylene glycol 3350 [Miralax] 17 gram/dose powder 17 g PO DAILY calcium carbonate-vitamin D3 1 EACH tablet,chewable 1 ea PO QHS ICaps AREDS2 250 mg-200 unit -12.5 mg-1 mg capsule 1 cap PO BID Referrals / Follow Up: Jarad Garcia-Neurology [Other] - Within 2 Weeks (family to make f/u appt) Cooper Hawk MD [Primary Care Provider] - Within 1 Week (family to make f/u appt ) Disposition Disposition (needs filled in before D/C Order can be placed): Assisted Living Charges/Coding Visit Charges Inpatient E&M: 12858 Disch Hosp >30min
[2023-08-04 20:30] VITALS: BP 137/88; PULSE 92; RESP 16; TEMP 36.4; O2SAT 97
[2023-08-04] MEDS: Tamsulosin HCl 0.4 MG Capsule PO (20:32)
[2023-08-04] MEDS: Mirtazapine 15 MG Tablet PO (20:32)
[2023-08-04] MEDS: Finasteride 5 MG Tablet PO (20:32)
[2023-08-04] MEDS: Nystatin Powder 15gm Bottle 1 APPLIC TOPICAL (20:33)
--- NOTE | 2023-08-05 02:36 | NURSING ---
Reviewed and agree with Mika AGUDELO, documentation and assessment charting.
[2023-08-05 06:00] VITALS: BMI 24.3
[2023-08-05] MEDS: Senna/Docusate Sodium 1 Tablet 2 TABLET PO ×2 (08:01→20:02)
[2023-08-05] MEDS: Aspirin E.C. 81 MG Tablet PO (08:02)
[2023-08-05 09:02] VITALS: BP 115/69; PULSE 96; RESP 16; TEMP 36.6; O2SAT 96
[2023-08-05] MEDS: Acetaminophen 500 MG Tablet 1000 MG PO (11:16)
[2023-08-05 20:00] VITALS: BP 107/67; PULSE 71; RESP 17; TEMP 36.8; O2SAT 96
[2023-08-05] MEDS: Mirtazapine 15 MG Tablet PO (20:02)
[2023-08-05] MEDS: Tamsulosin HCl 0.4 MG Capsule PO (20:02)
[2023-08-05] MEDS: Finasteride 5 MG Tablet PO (20:03)
[2023-08-05] MEDS: Nystatin Powder 15gm Bottle 1 APPLIC TOPICAL (20:03)
[2023-08-06] MEDS: Senna/Docusate Sodium 1 Tablet 2 TABLET PO ×2 (08:01→20:50)
[2023-08-06] MEDS: Nystatin Powder 15gm Bottle 1 APPLIC TOPICAL ×2 (08:02→20:51)
[2023-08-06] MEDS: Polyethylene Glycol 3350 17 GM PACKET PO (08:02)
[2023-08-06] MEDS: Aspirin E.C. 81 MG Tablet PO (08:02)
[2023-08-06 08:03] VITALS: BP 109/80; PULSE 100; RESP 18; TEMP 36.8; O2SAT 94
--- NOTE | 2023-08-06 09:56 | CASEMGMT ---
Social Work SW contact [facility] to speak with Elli Ram [phone]. Elli confirmed that discharge and clinical documentation was received by facility. Elli informed SW that the patient's daughter provided bed for patient at facility. JÚNIOR inquired about home health care support for patient. Elli informed SW that [facility] has a in-house home health care agency [facility] [phone] that can provide in house services. Elli confirmed that discharge summary had physician recommendation for continued PT/OT/ST services at discharge. JÚNIOR faxed home health care orders to [facility]. Patient family to provide transportation at discharge. Discharge: 08/07/2023 [facility] [place]ST GAURANG Olivares
--- NOTE | 2023-08-06 11:58 | PCM.PROGNOTE ---
Subjective Subjective Afebrile VSS - Maintaining appropriate oxygen saturation on RA Oral intake - FOOD good FLUIDS good Incontinent of urine Weight is stable Discussed with nursing - Has been having some constipation and Senna was added to MiraLAX yesterday. He had MOM and Dulcolax yesterday and has had 2 BM's. Reviewed the THERAPY notes Medication list reviewed. He has no complaints. He denies pain. Sleeping at night and has a good appetite. No cough and no SOB. Denies lightheadedness. Denies CP. No dysuria. Objective Data Objective Data Vital Signs: Vital Signs Temp Pulse Resp BP Pulse Ox O2 Del Method 98.2 F 100 18 109/80 94 Room Air 08/06/23 08:03 08/06/23 08:03 08/06/23 08:03 08/06/23 08:03 08/06/23 08:03 08/06/23 08:03 Oxygen Delivery Method Room Air Weight: 184 lb 4.903 oz Body Mass Index (BMI) 24.3 Intake & Output: Intake and Output for Last 24 Hours 08/04/23 08/05/23 08/06/23 23:59 23:59 23:59 Intake Total 1120 / 1120 1560 / 1560 480 / 480 Output Total 1100 / 1100 950 / 950 625 / 625 Balance 610 / 610 -145 / -145 Lab / Micro Data 08/06/23 13:14 08/04/23 05:24 Physical Exam Const alert Constitutional Narrative: ROSEBUD, pleasant. Sitting in the recliner at the bedside and he looks comfortable. General Appearance: cooperative Orientation / Consciousness: confused HEENT moist oral mucous membranes Resp normal respiratory effort and clear to auscultation bilaterally Resp Narrative: Able to speak in complete sentences with no conversational dyspnea. Effort and Inspection: Negative for tachypneic Cardio regular rate, regular rhythm and no gallops Cardio Narrative: No ectopy GI normal to inspection, nondistended, normoactive bowel sounds, soft to palpation and non-tender GI Narrative: No guarding with palpation. Extremity no calf tenderness General Extremity: Negative for cyanosis or edema Skin General Skin Exam: no breakdown Rashes: no rashes Neuro CN's II-XII intact bilaterally and no focal motor deficits Neuro Narrative: Generalized weakness. Very unsteady gait and he is very fearful of standing and walking. We have been working with him using the [employer] to get around. No tremors. Speech: speech normal Psych Psych Narrative: No longer wanting to kill himself by starving. Sleeping well at night. Pleasant and interacts well with staff. Talkative. Tolerating Remeron 15 mg nightly with no adverse side effects. He is looking forward to DC tomorrow to the [facility]. Looking forward to being able to see his dtr more often. 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 Continue therapy today 2. Plan discharge to [facility] tomorrow 3. Recheck a hemoglobin and hematocrit today - HGB is normal at 14 (it had dropped to 12.7 on 08/03 but, suspect 14 is correct. Charges/Coding Visit Charges Inpatient E&M: 91478 Subs Hosp L1
[2023-08-06 13:22] LABS: Hematocrit 43.9 % (40-54)
[2023-08-06 20:30] VITALS: BP 143/86; PULSE 77; RESP 16; TEMP 37.2; O2SAT 95
[2023-08-06] MEDS: Tamsulosin HCl 0.4 MG Capsule PO (20:49)
[2023-08-06] MEDS: Finasteride 5 MG Tablet PO (20:50)
[2023-08-06] MEDS: Mirtazapine 15 MG Tablet PO (20:50)
[2023-08-07] MEDS: Senna/Docusate Sodium 1 Tablet 2 TABLET PO (07:46)
[2023-08-07] MEDS: Aspirin E.C. 81 MG Tablet PO (07:46)
[2023-08-07] MEDS: Nystatin Powder 15gm Bottle 1 APPLIC TOPICAL (07:46)
[2023-08-07] MEDS: Polyethylene Glycol 3350 17 GM PACKET PO (07:46)
[2023-08-07 07:47] VITALS: BP 122/68; PULSE 100; RESP 18; TEMP 36.8; O2SAT 92
--- NOTE | 2023-08-07 09:54 | NURSING ---
[facility], to give report. Waiting for return call.
== END 2023-08-07 11:08 | disposition home health service (06) | DRG 57 ==
PROVIDERS: Admitting Provider Internal Medicine; PCP Family Medicine; Referring Provider Internal Medicine; Visit Provider Internal Medicine
DX: G21.4 Vascular parkinsonism (principal); F05 Delirium due to known physiological condition; F01.50 Vascular dementia, unspecified severity, without behavioral disturbance, psychotic disturbance, mood disturbance, and anxiety; F32.A Depression, unspecified; E86.0 Dehydration; E78.5 Hyperlipidemia, unspecified; I25.10 Atherosclerotic heart disease of native coronary artery without angina pectoris; K21.9 Gastro-esophageal reflux disease without esophagitis; N40.0 Benign prostatic hyperplasia without lower urinary tract symptoms; M62.81 Muscle weakness (generalized); Z87.891 Personal history of nicotine dependence; Z95.5 Presence of coronary angioplasty implant and graft; Z79.899 Other long term (current) drug therapy; Z79.82 Long term (current) use of aspirin; R13.12 Dysphagia, oropharyngeal phase
CPT/HCPCS: 36415; 74230; 80048; 80053; 82306; 83735; 84100; 84443; 85014; 85018; 85025; 85027; 92507; 92523; 92526; 92611; 93005; 97110; 97116; 97129; 97130; 97162; 97166; 97530; 97535; 97542; 97802